=== PATIENT | male | born 1960 | race African-American/Black ===

== ENCOUNTER 2017-01-09 13:31 | Inpatient (IN) | payer OTHER ==
[2017-01-09 15:55] VITALS: BMI 24.2
--- NOTE | 2017-01-09 18:10 | HP ---
CIWA Score - CIWA Score Nausea/Vomitin-Mild Nausea/No Vomiting Muscle Tremors: 4-Moderate,w/Arms Extend Anxiety: 4-Mod. Anxious/Guarded Agitation: 4-Moderately Restless Paroxysmal Sweats: 1-Minimal Palms Moist Orientation: 0-Oriented Tacttile Disturbances: 0-None Auditory Disturbances: 0-None Visual Disturbances: 0-None Headache: 1-Very Mild CIWA-Ar Total Score: 15 Admission ROS BHS - HPI Chief Complaint: withdrawal sx Allergies/Adverse Reactions: Allergies Allergy/AdvReac Type Severity Reaction Status Date / Time metoprolol Allergy Severe Swelling Verified 01/09/17 17:16 History of Present Illness: 56 years old male with long history of alcohol cocaine dependence has diabetes ii hypercholesterol hips replacement 1965 and depression is admitted to detox Exam Limitations: No Limitations - Ebola screening Have you traveled outside of the country in the last 21 days: No Have you had contact with anyone from an Ebola affected area: No Have you been sick,other than usual withdrawal symptoms: No Do you have a fever: No - Review of Systems Constitutional: Changes in sleep, Weight Stable EENT: reports: No Symptoms Reported Respiratory: reports: No Symptoms reported Cardiac: reports: No Symptoms Reported GI: reports: Nausea, Poor Fluid Intake, Abdominal cramping : reports: No Symptoms Reported Musculoskeletal: reports: Back Pain Integumentary: reports: No Symptoms Reported Neuro: reports: Tremors Endocrine: reports: Unexplained Weight Gain Hematology: reports: No Symptoms Reported Psychiatric: reports: Judgement Intact, Orientated x3, Anxious, Depressed Other Systems: Reviewed and Negative Patient History - Patient Medical History Hx Anemia: No Hx Asthma: No Hx Chronic Obstructive Pulmonary Disease (COPD): No Hx Cancer: No Hx Cardiac Disorders: No Hx Congestive Heart Failure: No Hx Hypertension: Yes Hx Hypercholesterolemia: Yes (lipitor 20 MGS PO NIGHTLY) Hx Pacemaker: No HX Cerebrovascular Accident: No Hx Seizures: No Hx Dementia: No Hx Diabetes: Yes Hx Gastrointestinal Disorders: No Hx Liver Disease: No Hx Genitourinary Disorders: No Hx Sexually Transmitted Disorders: No Hx Renal Disease (ESRD): No Hx Thyroid Disease: No Hx Human Immunodeficiency Virus (HIV): No Hx Hepatitis C: No Hx Depression: Yes Hx Suicide Attempt: Yes (2003 overdose) Hx Bipolar Disorder: No Hx Schizophrenia: No - Patient Surgical History Past Surgical History: Yes Hx Neurologic Surgery: No Hx Cataract Extraction: No Hx Cardiac Surgery: No Hx Lung Surgery: No Hx Breast Surgery: No Hx Breast Biopsy: No Hx Abdominal Surgery: No Hx Appendectomy: No Hx Cholecystectomy: No Hx Genitourinary Surgery: No Hx Orthopedic Surgery: Yes (bilateral hip sx in 1967) Other Surgical History: right thigh in 12/19/2004 Anesthesia Reaction: No - PPD History Previous Implant?: Yes Documented Results: Negative w/proof Implanted On Prior [facility] Admission?: Yes Date: 12/14/15 Results: 0 mm PPD to be Administered?: Yes - Smoking Cessation Smoking history: Never smoked Have you smoked in the past 12 months: No Hx Chewing Tobacco Use: No Initiated information on smoking cessation: No - Substance & Tx. History Hx Alcohol Use: Yes Hx Substance Use: Yes Substance Use Type: Alcohol, Cocaine Hx Substance Use Treatment: Yes (12/11-12/16/15 [facility] - Substances Abused Alcohol Route: Oral Frequency: Daily Amount used: 10 [id number] Age of first use: 18 Date of Last Use: 01/09/17 Cocaine Route: Smoking Frequency: Daily Amount used: $100 Age of first use: 34 Date of Last Use: 01/07/17 Family Disease History - Family Disease History Family Disease History: Heart Disease: Mother, Other: Father (/alcohol) , Brother (ALCOHOL) Admission Physical Exam S - Vital Signs Vital Signs: Vital Signs - 24 hr 01/09/17 15:53 Temperature 97.5 F L Pulse Rate 106 H Respiratory 18 Rate Blood Pressure 134/78 - Physical General Appearance: Yes: Nourished, Appropriately Dressed, Mild Distress, Alcohol on Breath, Tremorous, Irritable, Sweating, Anxious HEENTM: Yes: Hearing grossly Normal, Normal ENT Inspection, Normocephalic, Normal Voice Respiratory: Yes: Chest Non-Tender, Lungs Clear, Normal Breath Sounds, No Respiratory Distress, No Accessory Muscle Use Neck: Yes: Supple, Trachea in good position Breast: Yes: Breasts Symetrical Cardiology: Yes: Regular Rhythm, S1, S2, Tachycardia Abdominal: Yes: Non Tender, Soft, Increased Bowel Sounds Genitourinary: Yes: Within Normal Limits Back: Yes: Normal Inspection Musculoskeletal: Yes: Gait Steady (walker), Back pain, Muscle Pain, Muscle weakness (hips) Extremities: Yes: Non-Tender, Tremors Neurological: Yes: Fully Oriented, Alert, Normal Response, Depressed Affect Integumentary: Yes: Warm Lymphatic: Yes: Within Normal Limits - Diagnostic (1) Alcohol dependence with withdrawal, uncomplicated Current Visit: Yes Status: Acute (2) Hyperlipidemia Current Visit: Yes Status: Chronic (3) DM Diabetes mellitus type 2 Current Visit: Yes Status: Chronic (4) S/P BILATERAL HIP REPLACEMENT Current Visit: Yes Status: Resolved Comment: STATES NEEDED BOTH HIPS REPLACEMENT ONCE AGAIN (5) Cocaine dependence, uncomplicated Current Visit: Yes Status: Chronic (6) Walker as ambulation aid Current Visit: Yes Status: Chronic Cleared for Admission [facility] - Detox or Rehab [facility] Level of Care: Medically Managed Detox Regimen/Protocol: Librium [facility] Breath Alcohol Content Breath Alcohol Content: 0.127 Urine Drug Screen - Results Drug Screen Negative: No Urine Drug Screen Results: TRICIA-Cocaine
[2017-01-09] MEDS ORDERED: diphenhydrAMINE HCL 50 MG CAPSULE PO PRN (18:17)
[2017-01-09] MEDS ORDERED: MAGNESIUM HYDROX 2400MG/30ML ORAL SUSPENSION 30 ML CUP PO PRN (18:17)
[2017-01-09] MEDS ORDERED: chlordiazePOXIDE HCL 25 MG CAPSULE PO PRN (18:17)
[2017-01-09] MEDS ORDERED: ACETAMINOPHEN 325 MG TABLET (FP) PO PRN (18:17)
[2017-01-09] MEDS ORDERED: MENTHOL/PHENOL 1 EACH UD MM PRN (18:17)
[2017-01-09] MEDS ORDERED: P-EPHED 60MG/TRIPROLIDI 2.5MG TABLET PO PRN (18:17)
[2017-01-09] MEDS ORDERED: hydrOXYzine PAMOATE 50 MG CAPSULE (FP) PO PRN (18:17)
[2017-01-09] MEDS ORDERED: MAG HYDROX/AL HYDROX/SIMETH 30 ML UNIT-DOSE CUP PO PRN (18:17)
[2017-01-09] MEDS ORDERED: guaiFENesin/D-METHORPHAN HB 10 ML UNIT-DOSE CUPS PO PRN (18:17)
[2017-01-09] MEDS ORDERED: LOPERAMIDE HCL 2 MG CAPSULE PO PRN (18:17)
[2017-01-09] MEDS ORDERED: MAGNESIUM CITRATE 300 ML BOTTLE PO PRN (18:17)
[2017-01-09] MEDS ORDERED: cloNIDine HCL 0.1 MG TABLET PO PRN (18:20)
[2017-01-09] MEDS ORDERED: INSULIN (NOVOLOG) ASPART 100 UNITS/ML 10ML VIAL ONE (21:39)
[2017-01-09] MEDS: ATORVASTATIN CA 20 MG TABLET (FP) PO SCH (22:42)
[2017-01-09] MEDS: THIAMINE HCL 100 MG TABLET (FP) PO SCH (22:42)
[2017-01-09] MEDS: INSULIN SLIDING SCALE (NOVOLOG) 1 VIAL SQ SCH (22:43)
[2017-01-09] MEDS: chlordiazePOXIDE HCL 25 MG CAPSULE PO SCH (22:43)
[2017-01-10 00:03] LABS: URINE APPEARANCE CLEAR; URINE BILIRUBIN NEGATIVE (NEGATIVE); URINE BLOOD NEGATIVE (NEGATIVE); URINE COLOR YELLOW; URINE GLUCOSE (UA) NEGATIVE (NEGATIVE); URINE KETONE TRACE (NEGATIVE); URINE NITRITE NEGATIVE (NEGATIVE); URINE PROTEIN NEGATIVE (NEGATIVE); URINE UROBILINOGEN NEGATIVE mg/dL (0.2-1.0)
[2017-01-10] MEDS: chlordiazePOXIDE HCL 25 MG CAPSULE PO SCH ×4 (05:47→23:05)
[2017-01-10] MEDS ORDERED: INSULIN (NOVOLOG) ASPART 100 UNITS/ML 10ML VIAL ONE ×3 (05:52→23:12)
[2017-01-10] MEDS: INSULIN SLIDING SCALE (NOVOLOG) 1 VIAL SQ SCH ×4 (08:08→23:06)
[2017-01-10] MEDS: metFORMIN HCL 500 MG TABLET (FP) PO SCH ×2 (08:08→17:38)
[2017-01-10] MEDS: PRENATAL VITAMINS W/ FOLIC ACID TABLET (FP) PO SCH (10:07)
[2017-01-10 10:33] LABS: MCH 29.8 pg (25.7-33.7); MEAN CELL VOLUME 90.1 fl (80-96); MEAN PLT VOLUME 7.7 fl (7.5-11.1); PLATELET COUNT 257 K/MM3 (134-434); WHITE BLOOD COUNT 6.1 K/mm3 (4.0-10.0)
[2017-01-10 10:54] LABS: ALBUMIN 3.1 g/dl (3.4-5.0); ALK PHOS 70 U/L (45-117); ANION GAP 11 (8-16); BILIRUBIN,TOTAL 0.8 mg/dL (0.2-1.0); CALCIUM 9.1 mg/dL (8.5-10.1); CO2 26 mmol/L (21-32); CREATININE 0.7 mg/dL (0.7-1.3); GLUCOSE,RANDOM 111 mg/dL (74-106); SGOT/AST 32 U/L (15-37); SGPT/ALT 24 U/L (12-78); TOT PROT 6.8 g/dl (6.4-8.2)
[2017-01-10 12:09] LABS: URINE LEUK ESTERASE Negative (NEGATIVE)
--- NOTE | 2017-01-10 14:23 | CONSULT ---
[facility] Psychiatric Consult - Data Date of interview: 01/10/17 Admission source: [facility] Identifying data: [place] [facility] [place] 56 y[place] AA male seeking detox treatment on for alcohol and cocaine (crack) dependence.Patient is a without children,homeless (resides in longterm),unemployed,disabled and supported on SSI benefits. Substance Abuse History: Confirmed by patient in this encounter. Smoking Cessation. Smoking history: Never smoked. Have you smoked in the past 12 months: No. Hx Chewing Tobacco Use: No. Initiated information on smoking cessation: No. - Substance & Tx. History. Hx Alcohol Use: Yes. Hx Substance Use: Yes. Substance Use Type: Alcohol, Cocaine. Hx Substance Use Treatment: Yes (12/11-12/16/15 [facility]). - Substances Abused. Alcohol. Route: Oral. Frequency: Daily. Amount used: 10 [id number]. Age of first use: 18. Date of Last Use: 01/09/17. Cocaine. Route: Smoking. Frequency: Daily. Amount used: $100. Age of first use: 34. Date of Last Use: 01/07/17 Medical History: Medical co-morbidities : hypertension,hypercholesterolemia,gout ,diabetes mellitus and a past history of bilateral hip replacement (1966). Psychiatric History: Past psychiatric hospitalizations at [facility] and [facility] in [facility].Diagnosed with MDD.No recent history of OPD care.Mr Rodríguez reports that he uses various local emergency departments to obtain medications refills.Prescribed seroquel 50 mg/hs + wellbutrin (dose not recalled).Self- report of a suicide attempt in 2006 at the of (overdose with alcohol/ drugs/medications). Physical/Sexual Abuse/Trauma History: No reported history of abuse. Additional Comment: Urine Drug Screen Results: TRICIA-Cocaine.Noted. Mental Status Exam - Mental Status Exam Alert and Oriented to: Time, Place, Person Cognitive Function: Grossly Intact Patient Appearance: Well Groomed Mood: Nervous, Withdrawn, Anxious Affect: Mood Congruent Patient Behavior: Fatigued, Cooperative Speech Pattern: Clear Voice Loudness: Normal Thought Process: Goal Oriented Thought Disorder: Not Present Hallucinations: Denies Suicidal Ideation: Denies Homicidal Ideation: Denies Insight/Judgement: Poor Sleep: Poorly, Difficulty falling asleep Appetite: Fair Gait/Station: Other (moves around with a walker) Psychiatric Findings - Problem List ([place] 1, 2,3) (1) Alcohol dependence with withdrawal, uncomplicated Status: Acute (2) Cocaine dependence, uncomplicated Status: Acute (3) MDD (major depressive disorder) Status: Chronic Qualifiers: Major depression recurrence: recurrent Active/Remission status: remission status unspecified Qualified Code(s): F33.9 - Major depressive disorder, recurrent, unspecified; F33.9 - Major depressive disorder, recurrent, unspecified; F33.9 - Major depressive disorder, recurrent, unspecified; F33.9 - Major depressive disorder, recurrent, unspecified (4) DM Diabetes mellitus type 2 Status: Chronic (5) Hyperlipidemia Status: Chronic (6) Walker as ambulation aid Status: Chronic (7) S/P BILATERAL HIP REPLACEMENT Status: Resolved Comment: STATES NEEDED BOTH HIPS REPLACEMENT ONCE AGAIN (8) History of gout Status: Chronic (9) HYPERLIPIDEMIA Status: Chronic (10) Insomnia Status: Acute Qualifiers: Insomnia type: unspecified Qualified Code(s): G47.00 - Insomnia, unspecified; G47.00 - Insomnia, unspecified - Initial Treatment Plan Initial Treatment Plan: Psychoeducation.Detoxification.Medications : seroquel 50 mg po hs + wellbutrin 100 mg po daily.Side effects/benefits of both drugs are discussed with the patient.He agrees with this plan of care.Observation.
--- NOTE | 2017-01-10 19:51 | EKG ---
Test Reason : Blood Pressure : / mmHG Vent. Rate : 095 BPM Atrial Rate : 095 BPM P-R Int : 148 ms QRS Dur : 082 ms QT Int : 350 ms P-R-T Axes : 058 020 019 degrees QTc Int : 439 ms NORMAL SINUS RHYTHM NORMAL ECG NO PREVIOUS ECGS AVAILABLE CLINICAL CORRELATION IS RECOMMENDED Confirmed by YEE SAENZ MD ([id number]) on 01/10/2017 7:51:29 PM Referred By: Confirmed By:YEE SAENZ MD
--- NOTE | 2017-01-10 20:35 | PN ---
[facility] CIWA - CIWA Score Nausea/Vomitin-No Nausea/No Vomiting Muscle Tremors: 2 Anxiety: 3 Agitation: 2 Paroxysmal Sweats: 3 Orientation: 0-Oriented Tacttile Disturbances: 2-Mild Itch/Numbness/Burn Auditory Disturbances: 0-None Visual Disturbances: 1-Very Mild Sensitivity Headache: 3-Moderate CIWA-Ar Total Score: 16 S Progress Note (SOAP) Subjective: Sweating, Diarrhea, Stomach cramping, H/A, Body Aches. Objective: PT. A & O X 3, OBSERVED AMBULATING ON UNIT WITH ASSISTANCE OF A WALKER. NO ACUTE DISTRESS. 01/10/17 20:32 Vital Signs Temperature 98.7 F 01/10/17 18:24 Pulse Rate 88 01/10/17 18:24 Respiratory Rate 19 01/10/17 18:24 Blood Pressure 140/85 01/10/17 18:24 O2 Sat by Pulse Oximetry (%) Laboratory Tests 01/09/17 01/09/17 01/10/17 21:13 23:20 05:49 WBC RBC Hgb Hct MCV MCH MCHC RDW Plt Count MPV Sodium Potassium Chloride Carbon Dioxide Anion Gap BUN Creatinine Creat Clearance w eGFR POC Glucometer 212 231 Random Glucose Calcium Total Bilirubin AST ALT Alkaline Phosphatase Total Protein Albumin Urine Color Yellow Urine Appearance Clear Urine pH 6.0 Ur Specific [place] 1.020 Urine Protein Negative Urine Glucose (UA) Negative Urine Ketones Trace H Urine Blood Negative Urine Nitrite Negative Urine Bilirubin Negative Urine Urobilinogen Negative Ur Leukocyte Esterase Negative RPR Titer 01/10/17 01/10/17 01/10/17 08:00 08:00 08:00 WBC 6.1 RBC 4.59 Hgb 13.7 Hct 41.4 MCV 90.1 MCH 29.8 MCHC 33.0 RDW 14.0 Plt Count 257 MPV 7.7 Sodium 140 Potassium 3.7 Chloride 103 Carbon Dioxide 26 Anion Gap 11 BUN 7 Creatinine 0.7 Creat Clearance w eGFR > 60 POC Glucometer Random Glucose 111 H D Calcium 9.1 Total Bilirubin 0.8 D AST 32 ALT 24 Alkaline Phosphatase 70 Total Protein 6.8 Albumin 3.1 L Urine Color Urine Appearance Urine pH Ur Specific [place] Urine Protein Urine Glucose (UA) Urine Ketones Urine Blood Urine Nitrite Urine Bilirubin Urine Urobilinogen Ur Leukocyte Esterase RPR Titer Nonreactive 01/10/17 01/10/17 10:51 16:34 WBC RBC Hgb Hct MCV MCH MCHC RDW Plt Count MPV Sodium Potassium Chloride Carbon Dioxide Anion Gap BUN Creatinine Creat Clearance w eGFR POC Glucometer 312 204 Random Glucose Calcium Total Bilirubin AST ALT Alkaline Phosphatase Total Protein Albumin Urine Color Urine Appearance Urine pH Ur Specific [place] Urine Protein Urine Glucose (UA) Urine Ketones Urine Blood Urine Nitrite Urine Bilirubin Urine Urobilinogen Ur Leukocyte Esterase RPR Titer LABS NOTED. HCV AB RESULTS PENDING. 01/10/17 20:34 Assessment: 01/10/17 20:33 WITHDRAWAL SYMPTOMS. Plan: CONTINUE DETOX.
[2017-01-10] MEDS: QUEtiapine FUMARATE 50 MG TABLET PO SCH (23:05)
[2017-01-10] MEDS: ATORVASTATIN CA 20 MG TABLET (FP) PO SCH (23:05)
[2017-01-10] MEDS: THIAMINE HCL 100 MG TABLET (FP) PO SCH (23:10)
[2017-01-11] MEDS: chlordiazePOXIDE HCL 25 MG CAPSULE PO SCH ×3 (06:06→17:32)
[2017-01-11] MEDS: metFORMIN HCL 500 MG TABLET (FP) PO SCH ×2 (06:16→17:32)
[2017-01-11] MEDS ORDERED: INSULIN (NOVOLOG) ASPART 100 UNITS/ML 10ML VIAL ONE ×2 (06:39→11:05)
[2017-01-11] MEDS: INSULIN SLIDING SCALE (NOVOLOG) 1 VIAL SQ SCH ×4 (07:47→22:49)
[2017-01-11] MEDS: buPROPion HCL 100 MG TABLET PO SCH (10:25)
[2017-01-11] MEDS: PRENATAL VITAMINS W/ FOLIC ACID TABLET (FP) PO SCH (10:25)
--- NOTE | 2017-01-11 14:43 | PN ---
[facility] CIWA - CIWA Score Nausea/Vomitin-No Nausea/No Vomiting Muscle Tremors: 4-Moderate,w/Arms Extend Anxiety: 3 Agitation: 3 Paroxysmal Sweats: 3 Orientation: 0-Oriented Tacttile Disturbances: 0-None Auditory Disturbances: 0-None Visual Disturbances: 0-None Headache: 0-None Present CIWA-Ar Total Score: 13 S Progress Note (SOAP) Subjective: Anxiety,tremors,sweating,interrupted sleep,restless Objective: 01/11/17 14:42 Vital Signs - 8 hr 01/11/17 01/11/17 10:11 14:05 Temperature 97.1 F L 97.2 F L Pulse Rate 79 93 H Respiratory 18 20 Rate Blood Pressure 126/90 120/73 Laboratory Last Values WBC 6.1 K/mm3 (4.0-10.0) 01/10/17 08:00 RBC 4.59 M/mm3 (4.00-5.60) 01/10/17 08:00 Hgb 13.7 GM/dL (11.7-16.9) 01/10/17 08:00 Hct 41.4 % (35.4-49) 01/10/17 08:00 MCV 90.1 fl (80-96) 01/10/17 08:00 MCH 29.8 pg (25.7-33.7) 01/10/17 08:00 MCHC 33.0 g/dl (32.0-35.9) 01/10/17 08:00 RDW 14.0 % (11.9-15.9) 01/10/17 08:00 Plt Count 257 K/MM3 (134-434) 01/10/17 08:00 MPV 7.7 fl (7.5-11.1) 01/10/17 08:00 Sodium 140 mmol/L (136-145) 01/10/17 08:00 Potassium 3.7 mmol/L (3.5-5.1) 01/10/17 08:00 Chloride 103 mmol/L (98-107) 01/10/17 08:00 Carbon Dioxide 26 mmol/L (21-32) 01/10/17 08:00 Anion Gap 11 (8-16) 01/10/17 08:00 BUN 7 mg/dL (7-18) 01/10/17 08:00 Creatinine 0.7 mg/dL (0.7-1.3) 01/10/17 08:00 Creat Clearance w eGFR > 60 (>60) 01/10/17 08:00 POC Glucometer 281 UNITS (()) 01/11/17 10:57 Random Glucose 111 mg/dL (74-106) H D 01/10/17 08:00 Calcium 9.1 mg/dL (8.5-10.1) 01/10/17 08:00 Total Bilirubin 0.8 mg/dL (0.2-1.0) D 01/10/17 08:00 AST 32 U/L (15-37) 01/10/17 08:00 ALT 24 U/L (12-78) 01/10/17 08:00 Alkaline Phosphatase 70 U/L (45-117) 01/10/17 08:00 Total Protein 6.8 g/dl (6.4-8.2) 01/10/17 08:00 Albumin 3.1 g/dl (3.4-5.0) L 01/10/17 08:00 Urine Color Yellow 01/09/17 23:20 Urine Appearance Clear 01/09/17 23:20 Urine pH 6.0 (5.0-8.0) 01/09/17 23:20 Ur Specific [place] 1.020 (1.005-1.025) 01/09/17 23:20 Urine Protein Negative (NEGATIVE) 01/09/17 23:20 Urine Glucose (UA) Negative (NEGATIVE) 01/09/17 23:20 Urine Ketones Trace (NEGATIVE) H 01/09/17 23:20 Urine Blood Negative (NEGATIVE) 01/09/17 23:20 Urine Nitrite Negative (NEGATIVE) 01/09/17 23:20 Urine Bilirubin Negative (NEGATIVE) 01/09/17 23:20 Urine Urobilinogen Negative mg/dL (0.2-1.0) 01/09/17 23:20 Ur Leukocyte Esterase Negative (NEGATIVE) 01/09/17 23:20 RPR Titer Nonreactive (NONREACTIVE) 01/10/17 08:00 Hepatitis C Antibody 1.5 s/co ratio (0.0-0.9) H 01/10/17 08:00 labs noted Assessment: 01/11/17 14:42 Withdrawal sx. Plan: Continue detox
[2017-01-11] MEDS: ATORVASTATIN CA 20 MG TABLET (FP) PO SCH (22:45)
[2017-01-11] MEDS: THIAMINE HCL 100 MG TABLET (FP) PO SCH (22:45)
[2017-01-11] MEDS: QUEtiapine FUMARATE 50 MG TABLET PO SCH (22:46)
[2017-01-11] MEDS: chlordiazePOXIDE 5 MG CAPSULE PO SCH (22:46)
[2017-01-12] MEDS: metFORMIN HCL 500 MG TABLET (FP) PO SCH ×2 (07:25→16:47)
[2017-01-12] MEDS: chlordiazePOXIDE 5 MG CAPSULE PO SCH ×3 (07:26→17:47)
[2017-01-12] MEDS: INSULIN SLIDING SCALE (NOVOLOG) 1 VIAL SQ SCH ×4 (07:44→22:30)
[2017-01-12] MEDS: PRENATAL VITAMINS W/ FOLIC ACID TABLET (FP) PO SCH (11:08)
[2017-01-12] MEDS ORDERED: INSULIN (NOVOLOG) ASPART 100 UNITS/ML 10ML VIAL ONE ×3 (11:30→21:07)
[2017-01-12] MEDS: buPROPion HCL 100 MG TABLET PO SCH (12:05)
--- NOTE | 2017-01-12 12:58 | PN ---
BHS Progress Note (SOAP) Subjective: SLIGHT ANXIETY,SWEATS, FATIGUE. Objective: 01/12/17 12:57 Vital Signs Temperature 97.7 F 01/12/17 11:00 Pulse Rate 82 01/12/17 11:00 Respiratory Rate 18 01/12/17 11:00 Blood Pressure 129/60 01/12/17 11:00 O2 Sat by Pulse Oximetry (%) Laboratory Last Values WBC 6.1 K/mm3 (4.0-10.0) 01/10/17 08:00 RBC 4.59 M/mm3 (4.00-5.60) 01/10/17 08:00 Hgb 13.7 GM/dL (11.7-16.9) 01/10/17 08:00 Hct 41.4 % (35.4-49) 01/10/17 08:00 MCV 90.1 fl (80-96) 01/10/17 08:00 MCH 29.8 pg (25.7-33.7) 01/10/17 08:00 MCHC 33.0 g/dl (32.0-35.9) 01/10/17 08:00 RDW 14.0 % (11.9-15.9) 01/10/17 08:00 Plt Count 257 K/MM3 (134-434) 01/10/17 08:00 MPV 7.7 fl (7.5-11.1) 01/10/17 08:00 Sodium 140 mmol/L (136-145) 01/10/17 08:00 Potassium 3.7 mmol/L (3.5-5.1) 01/10/17 08:00 Chloride 103 mmol/L (98-107) 01/10/17 08:00 Carbon Dioxide 26 mmol/L (21-32) 01/10/17 08:00 Anion Gap 11 (8-16) 01/10/17 08:00 BUN 7 mg/dL (7-18) 01/10/17 08:00 Creatinine 0.7 mg/dL (0.7-1.3) 01/10/17 08:00 Creat Clearance w eGFR > 60 (>60) 01/10/17 08:00 POC Glucometer 257 UNITS (()) 01/12/17 11:27 Random Glucose 111 mg/dL (74-106) H D 01/10/17 08:00 Calcium 9.1 mg/dL (8.5-10.1) 01/10/17 08:00 Total Bilirubin 0.8 mg/dL (0.2-1.0) D 01/10/17 08:00 AST 32 U/L (15-37) 01/10/17 08:00 ALT 24 U/L (12-78) 01/10/17 08:00 Alkaline Phosphatase 70 U/L (45-117) 01/10/17 08:00 Total Protein 6.8 g/dl (6.4-8.2) 01/10/17 08:00 Albumin 3.1 g/dl (3.4-5.0) L 01/10/17 08:00 Urine Color Yellow 01/09/17 23:20 Urine Appearance Clear 01/09/17 23:20 Urine pH 6.0 (5.0-8.0) 01/09/17 23:20 Ur Specific [place] 1.020 (1.005-1.025) 01/09/17 23:20 Urine Protein Negative (NEGATIVE) 01/09/17 23:20 Urine Glucose (UA) Negative (NEGATIVE) 01/09/17 23:20 Urine Ketones Trace (NEGATIVE) H 01/09/17 23:20 Urine Blood Negative (NEGATIVE) 01/09/17 23:20 Urine Nitrite Negative (NEGATIVE) 01/09/17 23:20 Urine Bilirubin Negative (NEGATIVE) 01/09/17 23:20 Urine Urobilinogen Negative mg/dL (0.2-1.0) 01/09/17 23:20 Ur Leukocyte Esterase Negative (NEGATIVE) 01/09/17 23:20 RPR Titer Nonreactive (NONREACTIVE) 01/10/17 08:00 Hepatitis C Antibody 1.5 s/co ratio (0.0-0.9) H 01/10/17 08:00 Assessment: 01/12/17 12:57 WITHDRAWAL SX Plan: CONTINUE DETOX
[2017-01-12] MEDS: chlordiazePOXIDE HCL 10 MG CAPSULE PO SCH (22:30)
[2017-01-12] MEDS: ATORVASTATIN CA 20 MG TABLET (FP) PO SCH (22:30)
[2017-01-12] MEDS: QUEtiapine FUMARATE 50 MG TABLET PO SCH (22:30)
[2017-01-12] MEDS: THIAMINE HCL 100 MG TABLET (FP) PO SCH (22:30)
[2017-01-13] MEDS: IBUPROFEN 400 MG TABLET (FP) PO PRN ×2 (02:54→10:45)
[2017-01-13] MEDS: chlordiazePOXIDE HCL 10 MG CAPSULE PO SCH ×2 (06:07→10:46)
[2017-01-13] MEDS: metFORMIN HCL 500 MG TABLET (FP) PO SCH (06:07)
[2017-01-13] MEDS ORDERED: INSULIN (NOVOLOG) ASPART 100 UNITS/ML 10ML VIAL ONE ×2 (06:45→11:18)
[2017-01-13] MEDS: INSULIN SLIDING SCALE (NOVOLOG) 1 VIAL SQ SCH ×2 (07:05→11:16)
[2017-01-13] MEDS: buPROPion HCL 100 MG TABLET PO SCH (10:44)
[2017-01-13] MEDS: PRENATAL VITAMINS W/ FOLIC ACID TABLET (FP) PO SCH (10:45)
--- NOTE | 2017-01-13 11:56 | DS ---
[facility] Detox Discharge Summary Admission Date: 01/09/17 Discharge Date: 01/13/17 - History Present History: Alcohol Dependence, Cocaine Dependence Additional Comments: PATIENT GOING TO [facility] FOR AFTERCARE. PATIENT WAS DISCHARGED FROM DETOX UNIT TO BE TAKEN TO REHAB UNIT IN STABLE MEDICAL CONDITION. Pertinent Past History: Gout, Depression, HTN, Type II DM, Hyperlipidemia, S/P Bilateral Hip Replacement , Use of Walker as ambulatory Aid, Insomnia. - Physical Exam Results Vital Signs: Vital Signs Temperature 96.7 F L 01/13/17 10:19 Pulse Rate 92 H 01/13/17 10:19 Respiratory Rate 18 01/13/17 10:19 Blood Pressure 135/78 01/13/17 10:19 O2 Sat by Pulse Oximetry (%) Pertinent Admission Physical Exam Findings: WITHDRAWAL SYMPTOMS. Laboratory Tests 01/09/17 01/09/17 01/09/17 17:28 21:13 23:20 WBC RBC Hgb Hct MCV MCH MCHC RDW Plt Count MPV Sodium Potassium Chloride Carbon Dioxide Anion Gap BUN Creatinine Creat Clearance w eGFR POC Glucometer 172 212 Random Glucose Calcium Total Bilirubin AST ALT Alkaline Phosphatase Total Protein Albumin Urine Color Yellow Urine Appearance Clear Urine pH 6.0 Ur Specific [place] 1.020 Urine Protein Negative Urine Glucose (UA) Negative Urine Ketones Trace H Urine Blood Negative Urine Nitrite Negative Urine Bilirubin Negative Urine Urobilinogen Negative Ur Leukocyte Esterase Negative RPR Titer Hepatitis C Antibody 01/10/17 01/10/17 01/10/17 05:49 08:00 08:00 WBC 6.1 RBC 4.59 Hgb 13.7 Hct 41.4 MCV 90.1 MCH 29.8 MCHC 33.0 RDW 14.0 Plt Count 257 MPV 7.7 Sodium Potassium Chloride Carbon Dioxide Anion Gap BUN Creatinine Creat Clearance w eGFR POC Glucometer 231 Random Glucose Calcium Total Bilirubin AST ALT Alkaline Phosphatase Total Protein Albumin Urine Color Urine Appearance Urine pH Ur Specific [place] Urine Protein Urine Glucose (UA) Urine Ketones Urine Blood Urine Nitrite Urine Bilirubin Urine Urobilinogen Ur Leukocyte Esterase RPR Titer Hepatitis C Antibody 1.5 H 01/10/17 01/10/17 01/10/17 08:00 08:00 10:51 WBC RBC Hgb Hct MCV MCH MCHC RDW Plt Count MPV Sodium 140 Potassium 3.7 Chloride 103 Carbon Dioxide 26 Anion Gap 11 BUN 7 Creatinine 0.7 Creat Clearance w eGFR > 60 POC Glucometer 312 Random Glucose 111 H D Calcium 9.1 Total Bilirubin 0.8 D AST 32 ALT 24 Alkaline Phosphatase 70 Total Protein 6.8 Albumin 3.1 L Urine Color Urine Appearance Urine pH Ur Specific [place] Urine Protein Urine Glucose (UA) Urine Ketones Urine Blood Urine Nitrite Urine Bilirubin Urine Urobilinogen Ur Leukocyte Esterase RPR Titer Nonreactive Hepatitis C Antibody 01/10/17 01/10/17 01/11/17 16:34 23:04 06:15 WBC RBC Hgb Hct MCV MCH MCHC RDW Plt Count MPV Sodium Potassium Chloride Carbon Dioxide Anion Gap BUN Creatinine Creat Clearance w eGFR POC Glucometer 204 264 246 Random Glucose Calcium Total Bilirubin AST ALT Alkaline Phosphatase Total Protein Albumin Urine Color Urine Appearance Urine pH Ur Specific [place] Urine Protein Urine Glucose (UA) Urine Ketones Urine Blood Urine Nitrite Urine Bilirubin Urine Urobilinogen Ur Leukocyte Esterase RPR Titer Hepatitis C Antibody 01/11/17 01/11/17 01/11/17 10:57 16:42 20:35 WBC RBC Hgb Hct MCV MCH MCHC RDW Plt Count MPV Sodium Potassium Chloride Carbon Dioxide Anion Gap BUN Creatinine Creat Clearance w eGFR POC Glucometer 281 241 256 Random Glucose Calcium Total Bilirubin AST ALT Alkaline Phosphatase Total Protein Albumin Urine Color Urine Appearance Urine pH Ur Specific [place] Urine Protein Urine Glucose (UA) Urine Ketones Urine Blood Urine Nitrite Urine Bilirubin Urine Urobilinogen Ur Leukocyte Esterase RPR Titer Hepatitis C Antibody 01/12/17 01/12/17 01/12/17 07:39 11:27 16:26 WBC RBC Hgb Hct MCV MCH MCHC RDW Plt Count MPV Sodium Potassium Chloride Carbon Dioxide Anion Gap BUN Creatinine Creat Clearance w eGFR POC Glucometer 298 257 280 Random Glucose Calcium Total Bilirubin AST ALT Alkaline Phosphatase Total Protein Albumin Urine Color Urine Appearance Urine pH Ur Specific [place] Urine Protein Urine Glucose (UA) Urine Ketones Urine Blood Urine Nitrite Urine Bilirubin Urine Urobilinogen Ur Leukocyte Esterase RPR Titer Hepatitis C Antibody 01/12/17 01/13/17 01/13/17 20:51 06:08 11:16 WBC RBC Hgb Hct MCV MCH MCHC RDW Plt Count MPV Sodium Potassium Chloride Carbon Dioxide Anion Gap BUN Creatinine Creat Clearance w eGFR POC Glucometer 234 348 304 Random Glucose Calcium Total Bilirubin AST ALT Alkaline Phosphatase Total Protein Albumin Urine Color Urine Appearance Urine pH Ur Specific [place] Urine Protein Urine Glucose (UA) Urine Ketones Urine Blood Urine Nitrite Urine Bilirubin Urine Urobilinogen Ur Leukocyte Esterase RPR Titer Hepatitis C Antibody LABS NOTED. - Treatment Hospital Course: Detox Protocol Followed, Detoxed Safely, Responded well, Discharged Condition Good, Rehab Referral Accepted Patient has Accepted a Rehab Referral to: [facility]. - Medication Discharge Medications: Ambulatory Orders Atorvastatin Ca [Lipitor] 20 mg PO HS 04/13/13 Metformin HCl [Glucophage -] 500 mg PO BID 04/13/13 Bupropion HCl [Wellbutrin -] 100 mg PO DAILY #30 tablet 12/13/15 Quetiapine Fumarate [Seroquel] 100 tab PO HS #30 tablet 12/13/15 Ibuprofen [Motrin -] 600 mg PO QID PRN 01/09/17 Bupropion HCl [Wellbutrin -] 100 mg PO DAILY #30 tablet 01/10/17 Quetiapine Fumarate [Seroquel -] 50 mg PO HS #30 tablet 01/10/17 - Diagnosis (1) Alcohol dependence with withdrawal, uncomplicated Current Visit: Yes Status: Acute (2) Cocaine dependence, uncomplicated Current Visit: Yes Status: Acute (3) Insomnia Current Visit: Yes Status: Acute Qualifiers: Insomnia type: unspecified Qualified Code(s): G47.00 - Insomnia, unspecified; G47.00 - Insomnia, unspecified (4) DM Diabetes mellitus type 2 Current Visit: Yes Status: Chronic (5) HYPERLIPIDEMIA Current Visit: Yes Status: Chronic (6) History of gout Current Visit: Yes Status: Chronic (7) Hyperlipidemia Current Visit: Yes Status: Chronic (8) MDD (major depressive disorder) Current Visit: Yes Status: Chronic Qualifiers: Major depression recurrence: recurrent Active/Remission status: remission status unspecified Qualified Code(s): F33.9 - Major depressive disorder, recurrent, unspecified; F33.9 - Major depressive disorder, recurrent, unspecified; F33.9 - Major depressive disorder, recurrent, unspecified; F33.9 - Major depressive disorder, recurrent, unspecified (9) Walker as ambulation aid Current Visit: Yes Status: Chronic (10) S/P BILATERAL HIP REPLACEMENT Current Visit: Yes Status: Resolved (11) Major depressive disorder Current Visit: No Status: Chronic - AMA Did Patient Leave Against Medical Advice: No
[2017-01-13] MEDS ORDERED: buPROPion HCL 100 MG TABLET PO ONE (13:18)
[2017-01-13 13:32] VITALS: BP 132/68; PULSE 93; TEMP 98
--- NOTE | 2017-01-13 13:35 | HP ---
Psychiatrist Admission - Data Date of interview: 01/13/17 Admission source: 3N Identifying data: This is the second [facility] inpatient rehabilitation admission for thsi 56 year old AA male, without children, unemployed and on SSI, [place] Medical History: HTN, Hypercholesterolemia, Gout, DM, bilateral hips replacement. Psychiatric History: Patient reports was diagnosed with MDD, first psychiatric contact in 2002 following the of his from complications of diabetes, reports he tried to commit a suicide by overdose with drugs and alcohol, states family called 911 and he was brought to [facility], states was overnight there and sent to I detox. second hospitalization at [facility] in 2010 for 2 days(was intoxicated), another psychiatric hospitlaization at [facility] . Reports has been on and off Wellbutrin since 2002, states he sees the psychiatrist at various Er'S/detox/rehab. programs to continue medications.Seen by and continued Wellbutrin 100 mg po daily and Seroquel 50 mg po hs. Physical/Sexual Abuse/Trauma History: Denies history of sexual, phsyical and verbal abuse. Additional Comment: HS grad, in special classes for learning disorder. Vital Signs: Vital Signs - 24 hr 01/12/17 01/12/17 01/12/17 13:47 17:49 22:28 Temperature 98.4 F 98.1 F 98.6 F Pulse Rate 93 H 92 H 93 H Respiratory 20 18 18 Rate Blood Pressure 126/73 109/64 152/87 01/13/17 01/13/17 01/13/17 00:30 03:30 06:36 Temperature 97 F L Pulse Rate 97 H Respiratory 18 18 16 Rate Blood Pressure 151/80 01/13/17 10:19 Temperature 96.7 F L Pulse Rate 92 H Respiratory 18 Rate Blood Pressure 135/78 Allergies/Adverse Reactions: Allergies Allergy/AdvReac Type Severity Reaction Status Date / Time metoprolol Allergy Severe Swelling Verified 01/09/17 17:16 Date of last physical exam: 01/09/17 Concur with the findings of this exam: Yes - Substance Abuse/Tx History Hx Alcohol Use: Yes Hx Substance Use: Yes Substance Use Type: Alcohol (drinkis 10 x 40 oz cans of beer daily.), Cocaine ( smoks cocaine daily for $100) Hx Substance Use Treatment: Yes (04/19 and 12/20 at [facility]) Mental Status Exam - Mental Status Exam Alert and Oriented to: Time, Place, Person Cognitive Function: Grossly Intact Patient Appearance: Unkempt, Disheveled Mood: Sad, Anxious Affect: Mood Congruent Patient Behavior: Appropriate, Cooperative Speech Pattern: Clear, Appropriate Voice Loudness: Normal Thought Process: Intact, Goal Oriented Thought Disorder: Not Present Hallucinations: Denies Suicidal Ideation: Denies Homicidal Ideation: Denies Insight/Judgement: Fair Sleep: Fair Appetite: Fair Muscle strength/Tone: Normal Gait/Station: Other (ambulates with walker) Psychiatric Findings - Problem List ([place] 1, 2,3) (1) MDD (major depressive disorder) Current Visit: Yes Status: Chronic Qualifiers: Major depression recurrence: recurrent Active/Remission status: remission status unspecified Qualified Code(s): F33.9 - Major depressive disorder, recurrent, unspecified; F33.9 - Major depressive disorder, recurrent, unspecified; F33.9 - Major depressive disorder, recurrent, unspecified; F33.9 - Major depressive disorder, recurrent, unspecified (2) Alcohol dependence Current Visit: No Status: Active (3) Cocaine dependence Current Visit: No Status: Acute (4) DM Diabetes mellitus type 2 Current Visit: Yes Status: Chronic (5) History of gout Current Visit: Yes Status: Chronic (6) Hyperlipidemia Current Visit: Yes Status: Chronic (7) S/P BILATERAL HIP REPLACEMENT Current Visit: Yes Status: Resolved Comment: STATES NEEDED BOTH HIPS REPLACEMENT ONCE AGAIN - Initial Treatment Plan Initial Treatment Plan: Will continue his current medications, monitor progress as needed.
== END 2017-01-13 11:58 | disposition other institution (70) | DRG 774 ==
LOC: YASAS 13:31 → Y3N 18:06 → Y5N 01-13 11:58 → Y3N 01-13 11:58
PROVIDERS: ADMIT Internal Medicine; ATTEND Psychiatry & Neurology Psychiatry
PROC: HZ2ZZZZ Detoxification Services for Substance Abuse Treatment (ICD-10-PCS; principal; 2017-01-09)
DX: F10.230 Alcohol dependence with withdrawal, uncomplicated (principal); F14.20 Cocaine dependence, uncomplicated; F33.9 Major depressive disorder, recurrent, unspecified; E11.9 Type 2 diabetes mellitus without complications; M10.9 Gout, unspecified; E78.5 Hyperlipidemia, unspecified; R00.0 Tachycardia, unspecified; G47.00 Insomnia, unspecified; R26.2 Difficulty in walking, not elsewhere classified; Z99.89 Dependence on other enabling machines and devices; Z96.643 Presence of artificial hip joint, bilateral; Z88.8 Allergy status to other drugs, medicaments and biological substances; Z79.4 Long term (current) use of insulin; Z79.84 Long term (current) use of oral hypoglycemic drugs; Z91.5 Personal history of self-harm
CPT/HCPCS: 36415; 80053; 81003; 85027; 86593; 86803; 87522; 93005; 93010

== ENCOUNTER 2017-01-13 15:36 | Inpatient (IN) | payer OTHER ==
--- NOTE | 2017-01-13 11:59 | HP ---
[facility] Rehab Assess/Revision - Admission History Admitted to Rehab from: [facility] Date of Admission to Rehab: 01/13/2017 - Vital signs Vital Signs: NOTED; STABLE. - Findings Detox History & Physical reviewed: Yes Concur with findings: Yes Comments/Additional Findings: PATIENT'S MEDICAL / MEDICATION HISTORY REVIEWED PRIOR TO DISCHARGE FROM DETOX UNIT. PATIENT WAS DISCHARGED FROM DETOX UNIT TO BE TRANSFERRED TO REHAB UNIT IN STABLE MEDICAL CONDITION. Inpatient Rehab Admission - Initial Determination Are CD services needed?: Yes Free of communicable disease: Yes Not in need of hospitalization: Yes - Rehab Admission Criteria Previous failed treatment: Yes Comorbidities: Yes Patient is meeting Inpatient Rehab admission criteria:: Yes
--- NOTE | 2017-01-13 15:56 | HP ---
Psychiatrist Admission - Data Date of interview: 01/13/17 Admission source: 3N Identifying data: This is the second [facility] inpatient rehabilitation admission for thsi 56 year old AA male, without children, unemployed and on SSI, [place]. Medical History: HTN, Hypercholesterolemia, Gout, DM, bilateral hips replacement. Psychiatric History: Patient reports was diagnosed with MDD, first psychiatric contact in 2002 following the of his from complications of diabetes, reports he tried to commit a suicide by overdose with drugs and alcohol, states family called 911 and he was brought to [facility], states was overnight there and sent to I detox. second hospitalization at [facility] in 2010 for 2 days(was intoxicated), another psychiatric hospitlaization at [facility] . Reports has been on and off Wellbutrin since 2002, states he sees the psychiatrist at various Er'S/detox/rehab. programs to continue medications.Seen by and continued Wellbutrin 100 mg po daily and Seroquel 50 mg po hs. Physical/Sexual Abuse/Trauma History: Denies history of sexual, physical and verbal abuse. Additional Comment: HS graduate, in special classes for learning disorder. Allergies/Adverse Reactions: Allergies Allergy/AdvReac Type Severity Reaction Status Date / Time metoprolol Allergy Severe Swelling Verified 01/09/17 17:16 Concur with the findings of this exam: Yes - Substance Abuse/Tx History Hx Alcohol Use: Yes ((drinks 10 x 40 oz cans of beer daily.), Cocaine (smoks cocaine daily for ) Hx Substance Use: Yes ((drinks 10 x 40 oz cans of beer daily.), Cocaine (smokes cocaine daily for ) Substance Use Type: Alcohol Hx Substance Use Treatment: Yes ([facility]) Psychiatric Findings - Problem List ([place] 1, 2,3) (1) Alcohol dependence Current Visit: No Status: Active (2) Cocaine dependence Current Visit: No Status: Acute (3) MDD (major depressive disorder) Current Visit: No Status: Chronic Qualifiers: Major depression recurrence: recurrent Active/Remission status: remission status unspecified Qualified Code(s): F33.9 - Major depressive disorder, recurrent, unspecified; F33.9 - Major depressive disorder, recurrent, unspecified; F33.9 - Major depressive disorder, recurrent, unspecified; F33.9 - Major depressive disorder, recurrent, unspecified - Initial Treatment Plan Initial Treatment Plan: will continue his current medications, monitor progress as needed.
--- NOTE | 2017-01-13 17:04 | HP ---
[facility]BERTO WHATLEY Rehab Assess/Revision - Admission History Admitted to Rehab from: [facility] Date of Admission to Rehab: 01/13/17 - Vital signs Vital Signs: Vital Signs Period Temp Pulse Resp BP Sys/Edwards Pulse Ox Last 24 Hr 98 F 93 18 132/68 - Findings Detox History & Physical reviewed: Yes Concur with findings: Yes Comments/Additional Findings: TRANSFERRED FROM DETOX TO REHAB ADMISSION PER PROTOCOL
[2017-01-13] MEDS ORDERED: IBUPROFEN 400 MG TABLET (FP) PO PRN (17:05)
[2017-01-13] MEDS ORDERED: diphenhydrAMINE HCL 50 MG CAPSULE PO PRN (17:05)
[2017-01-13] MEDS ORDERED: MENTHOL/PHENOL 1 EACH UD MM PRN (17:05)
[2017-01-13] MEDS ORDERED: MAGNESIUM CITRATE 300 ML BOTTLE PO PRN (17:05)
[2017-01-13] MEDS ORDERED: P-EPHED 60MG/TRIPROLIDI 2.5MG TABLET PO PRN (17:05)
[2017-01-13] MEDS ORDERED: MAGNESIUM HYDROX 2400MG/30ML ORAL SUSPENSION 30 ML CUP PO PRN (17:05)
[2017-01-13] MEDS ORDERED: MAG HYDROX/AL HYDROX/SIMETH 30 ML UNIT-DOSE CUP PO PRN (17:05)
[2017-01-13] MEDS ORDERED: NICOTINE POLACRILEX 2 MG GUM BUC PRN (17:05)
[2017-01-13] MEDS ORDERED: guaiFENesin/D-METHORPHAN HB 10 ML UNIT-DOSE CUPS PO PRN (17:05)
[2017-01-13] MEDS ORDERED: LOPERAMIDE HCL 2 MG CAPSULE PO PRN (17:05)
--- NOTE | 2017-01-13 17:05 | HP ---
Admission ROS [facility] - HPI Allergies/Adverse Reactions: Allergies Allergy/AdvReac Type Severity Reaction Status Date / Time metoprolol Allergy Severe Swelling Verified 01/09/17 17:16 - Ebola screening Have you traveled outside of the country in the last 21 days: No Have you had contact with anyone from an Ebola affected area: No Do you have a fever: No Patient History - Patient Medical History Hx Anemia: No Hx Asthma: No Hx Chronic Obstructive Pulmonary Disease (COPD): No Hx Cancer: No Hx Cardiac Disorders: No Hx Congestive Heart Failure: No Hx Hypertension: Yes Hx Hypercholesterolemia: Yes (lipitor 20 MGS PO NIGHTLY) Hx Pacemaker: No HX Cerebrovascular Accident: No Hx Seizures: No Hx Dementia: No Hx Diabetes: Yes Hx Gastrointestinal Disorders: No Hx Liver Disease: No Hx Genitourinary Disorders: No Hx Sexually Transmitted Disorders: No Hx Renal Disease (ESRD): No Hx Thyroid Disease: No Hx Human Immunodeficiency Virus (HIV): No Hx Hepatitis C: No Hx Depression: Yes Hx Suicide Attempt: Yes (2003 overdose) Hx Bipolar Disorder: No Hx Schizophrenia: No - Patient Surgical History Past Surgical History: Yes Hx Neurologic Surgery: No Hx Cataract Extraction: No Hx Cardiac Surgery: No Hx Lung Surgery: No Hx Breast Surgery: No Hx Breast Biopsy: No Hx Abdominal Surgery: No Hx Appendectomy: No Hx Cholecystectomy: No Hx Genitourinary Surgery: No Hx Section: No Hx Orthopedic Surgery: Yes (bilateral hip sx in 1966) Other Surgical History: right thigh in 12/19/2004 Anesthesia Reaction: No - PPD History Date: 01/11/17 Results: 0 mm. - Smoking Cessation Smoking history: Former smoker Have you smoked in the past 12 months: No Hx Chewing Tobacco Use: No Initiated information on smoking cessation: No - Substances Abused Cocaine Route: Smoking Frequency: Daily Amount used: $100 Age of first use: 34 Date of Last Use: 01/07/17 Alcohol Route: Oral Frequency: Daily Amount used: 10 cans x 40 oz Age of first use: 18 Date of Last Use: 01/09/17 Family Disease History - Family Disease History Family Disease History: Heart Disease: Mother, Other: Father (/alcohol) , Brother (ALCOHOL) Admission Physical Exam S - Vital Signs Vital Signs: Vital Signs - 24 hr 01/13/17 16:47 Temperature 98 F Pulse Rate 93 H Respiratory 18 Rate Blood Pressure 132/68 [facility] Breath Alcohol Content Breath Alcohol Content: 0.127 Inpatient Rehab Admission - Initial Determination Are CD services needed?: Yes Free of communicable disease: Yes Not in need of hospitalization: Yes - Rehab Admission Criteria Previous failed treatment: Yes Poor recovery environment: Yes Comorbidities: Yes Lacks judgement: No Patient is meeting Inpatient Rehab admission criteria:: Yes
[2017-01-13] MEDS ORDERED: NICOTINE 14 MG/24 HOURS TOPICAL PATCH TD PRN (17:45)
[2017-01-13] MEDS: INSULIN SLIDING SCALE (NOVOLOG) 1 VIAL SQ SCH ×3 (17:53→22:11)
[2017-01-13] MEDS: metFORMIN HCL 500 MG TABLET (FP) PO SCH (17:55)
[2017-01-13] MEDS ORDERED: INSULIN (NOVOLOG) ASPART 100 UNITS/ML 10ML VIAL ONE ×2 (17:58→22:27)
--- NOTE | 2017-01-13 20:31 | PN ---
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 Mr Rodríguez is known to service writer advisor.Seen on on 01/10/17. Plan : Wellbutrin 100 mg po daily Seroquel 50 mg po hs Ordered as requested by nurse on duty.
[2017-01-13] MEDS: THIAMINE HCL 100 MG TABLET (FP) PO SCH (22:12)
[2017-01-13] MEDS: QUEtiapine FUMARATE 50 MG TABLET PO SCH (22:12)
[2017-01-13] MEDS: ATORVASTATIN CA 20 MG TABLET (FP) PO SCH (22:12)
[2017-01-14] MEDS: metFORMIN HCL 500 MG TABLET (FP) PO SCH ×2 (06:35→16:57)
[2017-01-14] MEDS: INSULIN SLIDING SCALE (NOVOLOG) 1 VIAL SQ SCH ×4 (06:36→21:50)
[2017-01-14] MEDS ORDERED: INSULIN (NOVOLOG) ASPART 100 UNITS/ML 10ML VIAL ONE ×3 (07:01→18:12)
[2017-01-14] MEDS: PRENATAL VITAMINS W/ FOLIC ACID TABLET (FP) PO SCH (10:50)
[2017-01-14] MEDS: buPROPion HCL 100 MG TABLET PO SCH (10:50)
[2017-01-14] MEDS: THIAMINE HCL 100 MG TABLET (FP) PO SCH (21:49)
[2017-01-14] MEDS: ATORVASTATIN CA 20 MG TABLET (FP) PO SCH (21:49)
[2017-01-14] MEDS: QUEtiapine FUMARATE 50 MG TABLET PO SCH (21:49)
[2017-01-15] MEDS: metFORMIN HCL 500 MG TABLET (FP) PO SCH ×2 (06:19→16:46)
[2017-01-15] MEDS: INSULIN SLIDING SCALE (NOVOLOG) 1 VIAL SQ SCH ×4 (06:19→21:51)
[2017-01-15] MEDS ORDERED: INSULIN (NOVOLOG) ASPART 100 UNITS/ML 10ML VIAL ONE ×2 (06:47→22:12)
[2017-01-15] MEDS: PRENATAL VITAMINS W/ FOLIC ACID TABLET (FP) PO SCH (10:36)
[2017-01-15] MEDS: buPROPion HCL 100 MG TABLET PO SCH (10:36)
[2017-01-15] MEDS: QUEtiapine FUMARATE 50 MG TABLET PO SCH (21:50)
[2017-01-15] MEDS: THIAMINE HCL 100 MG TABLET (FP) PO SCH (21:50)
[2017-01-15] MEDS: ATORVASTATIN CA 20 MG TABLET (FP) PO SCH (21:50)
[2017-01-16] MEDS: metFORMIN HCL 500 MG TABLET (FP) PO SCH ×2 (06:34→16:40)
[2017-01-16] MEDS: INSULIN SLIDING SCALE (NOVOLOG) 1 VIAL SQ SCH ×4 (06:36→21:49)
[2017-01-16] MEDS ORDERED: INSULIN (NOVOLOG) ASPART 100 UNITS/ML 10ML VIAL ONE ×3 (07:15→16:37)
[2017-01-16] MEDS: PRENATAL VITAMINS W/ FOLIC ACID TABLET (FP) PO SCH (11:07)
[2017-01-16] MEDS: buPROPion HCL 100 MG TABLET PO SCH (11:07)
[2017-01-16] MEDS: QUEtiapine FUMARATE 50 MG TABLET PO SCH (21:49)
[2017-01-16] MEDS: THIAMINE HCL 100 MG TABLET (FP) PO SCH (21:49)
[2017-01-16] MEDS: ATORVASTATIN CA 20 MG TABLET (FP) PO SCH (21:49)
[2017-01-17] MEDS: metFORMIN HCL 500 MG TABLET (FP) PO SCH ×2 (06:52→16:56)
[2017-01-17] MEDS: INSULIN SLIDING SCALE (NOVOLOG) 1 VIAL SQ SCH ×4 (06:53→21:48)
[2017-01-17] MEDS ORDERED: INSULIN (NOVOLOG) ASPART 100 UNITS/ML 10ML VIAL ONE ×4 (07:11→22:07)
[2017-01-17] MEDS: buPROPion HCL 100 MG TABLET PO SCH (09:58)
[2017-01-17] MEDS: PRENATAL VITAMINS W/ FOLIC ACID TABLET (FP) PO SCH (09:58)
[2017-01-17] MEDS: QUEtiapine FUMARATE 50 MG TABLET PO SCH (21:48)
[2017-01-17] MEDS: THIAMINE HCL 100 MG TABLET (FP) PO SCH (21:48)
[2017-01-17] MEDS: ATORVASTATIN CA 20 MG TABLET (FP) PO SCH (21:48)
[2017-01-18] MEDS: metFORMIN HCL 500 MG TABLET (FP) PO SCH ×2 (06:44→16:49)
[2017-01-18] MEDS: INSULIN SLIDING SCALE (NOVOLOG) 1 VIAL SQ SCH ×4 (06:44→21:39)
[2017-01-18] MEDS ORDERED: INSULIN (NOVOLOG) ASPART 100 UNITS/ML 10ML VIAL ONE ×3 (07:19→21:49)
[2017-01-18] MEDS: PRENATAL VITAMINS W/ FOLIC ACID TABLET (FP) PO SCH (10:36)
[2017-01-18] MEDS: buPROPion HCL 100 MG TABLET PO SCH (10:36)
[2017-01-18] MEDS: ACETAMINOPHEN 325 MG TABLET (FP) PO PRN ×2 (10:37→21:40)
[2017-01-18] MEDS: QUEtiapine FUMARATE 50 MG TABLET PO SCH (21:38)
[2017-01-18] MEDS: THIAMINE HCL 100 MG TABLET (FP) PO SCH (21:38)
[2017-01-18] MEDS: ATORVASTATIN CA 20 MG TABLET (FP) PO SCH (21:38)
[2017-01-19] MEDS: metFORMIN HCL 500 MG TABLET (FP) PO SCH ×2 (06:20→16:48)
[2017-01-19] MEDS: INSULIN SLIDING SCALE (NOVOLOG) 1 VIAL SQ SCH ×4 (06:21→22:01)
[2017-01-19] MEDS ORDERED: INSULIN (NOVOLOG) ASPART 100 UNITS/ML 10ML VIAL ONE ×3 (06:41→23:14)
[2017-01-19] MEDS: buPROPion HCL 100 MG TABLET PO SCH (10:33)
[2017-01-19] MEDS: PRENATAL VITAMINS W/ FOLIC ACID TABLET (FP) PO SCH (10:33)
[2017-01-19] MEDS ORDERED: QUEtiapine FUMARATE 25 MG TABLET (FP) ONE (20:57)
[2017-01-19] MEDS: THIAMINE HCL 100 MG TABLET (FP) PO SCH (22:00)
[2017-01-19] MEDS: ATORVASTATIN CA 20 MG TABLET (FP) PO SCH (22:00)
[2017-01-19] MEDS: QUEtiapine FUMARATE 50 MG TABLET PO SCH (22:00)
[2017-01-20] MEDS: metFORMIN HCL 500 MG TABLET (FP) PO SCH ×2 (06:28→16:51)
[2017-01-20] MEDS: INSULIN SLIDING SCALE (NOVOLOG) 1 VIAL SQ SCH ×4 (06:29→21:38)
[2017-01-20] MEDS ORDERED: INSULIN (NOVOLOG) ASPART 100 UNITS/ML 10ML VIAL ONE ×3 (07:34→17:20)
[2017-01-20] MEDS: buPROPion HCL 100 MG TABLET PO SCH (10:12)
[2017-01-20] MEDS: PRENATAL VITAMINS W/ FOLIC ACID TABLET (FP) PO SCH (10:12)
[2017-01-20] MEDS: ACETAMINOPHEN 325 MG TABLET (FP) PO PRN (10:13)
[2017-01-20] MEDS: NAPROXEN 500 MG TABLET (FP) PO SCH ×2 (11:49→21:39)
[2017-01-20] MEDS: QUEtiapine FUMARATE 50 MG TABLET PO SCH (21:39)
[2017-01-20] MEDS: THIAMINE HCL 100 MG TABLET (FP) PO SCH (21:39)
[2017-01-20] MEDS: ATORVASTATIN CA 20 MG TABLET (FP) PO SCH (21:39)
[2017-01-21] MEDS: metFORMIN HCL 500 MG TABLET (FP) PO SCH ×2 (06:26→16:38)
[2017-01-21] MEDS: INSULIN SLIDING SCALE (NOVOLOG) 1 VIAL SQ SCH ×4 (07:41→21:42)
[2017-01-21] MEDS ORDERED: INSULIN (NOVOLOG) ASPART 100 UNITS/ML 10ML VIAL ONE ×3 (07:44→16:49)
[2017-01-21] MEDS: PANTOPRAZOLE 40 MG TABLET (FP) PO SCH (10:43)
[2017-01-21] MEDS: NAPROXEN 500 MG TABLET (FP) PO SCH ×2 (10:43→21:42)
[2017-01-21] MEDS: buPROPion HCL 100 MG TABLET PO SCH (10:43)
[2017-01-21] MEDS: PRENATAL VITAMINS W/ FOLIC ACID TABLET (FP) PO SCH (10:43)
[2017-01-21] MEDS: ATORVASTATIN CA 20 MG TABLET (FP) PO SCH (21:42)
[2017-01-21] MEDS: QUEtiapine FUMARATE 50 MG TABLET PO SCH (21:42)
[2017-01-21] MEDS: THIAMINE HCL 100 MG TABLET (FP) PO SCH (21:42)
[2017-01-22] MEDS: metFORMIN HCL 500 MG TABLET (FP) PO SCH ×2 (06:18→16:34)
[2017-01-22] MEDS: INSULIN SLIDING SCALE (NOVOLOG) 1 VIAL SQ SCH ×4 (06:19→22:00)
[2017-01-22] MEDS ORDERED: INSULIN (NOVOLOG) ASPART 100 UNITS/ML 10ML VIAL ONE ×4 (06:38→22:24)
[2017-01-22] MEDS: NAPROXEN 500 MG TABLET (FP) PO SCH ×2 (10:18→21:59)
[2017-01-22] MEDS: buPROPion HCL 100 MG TABLET PO SCH (10:18)
[2017-01-22] MEDS: PRENATAL VITAMINS W/ FOLIC ACID TABLET (FP) PO SCH (10:18)
[2017-01-22] MEDS: PANTOPRAZOLE 40 MG TABLET (FP) PO SCH (10:18)
[2017-01-22] MEDS: ATORVASTATIN CA 20 MG TABLET (FP) PO SCH (21:59)
[2017-01-22] MEDS: QUEtiapine FUMARATE 50 MG TABLET PO SCH (21:59)
[2017-01-22] MEDS: THIAMINE HCL 100 MG TABLET (FP) PO SCH (21:59)
[2017-01-23] MEDS: metFORMIN HCL 500 MG TABLET (FP) PO SCH ×2 (06:22→16:53)
[2017-01-23] MEDS ORDERED: INSULIN (NOVOLOG) ASPART 100 UNITS/ML 10ML VIAL ONE ×4 (07:14→22:23)
[2017-01-23] MEDS: INSULIN SLIDING SCALE (NOVOLOG) 1 VIAL SQ SCH ×4 (07:50→22:08)
[2017-01-23] MEDS: NAPROXEN 500 MG TABLET (FP) PO SCH ×2 (10:55→22:07)
[2017-01-23] MEDS: buPROPion HCL 100 MG TABLET PO SCH (10:55)
[2017-01-23] MEDS: PRENATAL VITAMINS W/ FOLIC ACID TABLET (FP) PO SCH (10:55)
[2017-01-23] MEDS: PANTOPRAZOLE 40 MG TABLET (FP) PO SCH (10:55)
[2017-01-23] MEDS: ATORVASTATIN CA 20 MG TABLET (FP) PO SCH (22:07)
[2017-01-23] MEDS: THIAMINE HCL 100 MG TABLET (FP) PO SCH (22:07)
[2017-01-23] MEDS: QUEtiapine FUMARATE 50 MG TABLET PO SCH (22:07)
[2017-01-24] MEDS: metFORMIN HCL 500 MG TABLET (FP) PO SCH ×2 (06:33→16:49)
[2017-01-24] MEDS: INSULIN SLIDING SCALE (NOVOLOG) 1 VIAL SQ SCH ×4 (06:34→21:57)
[2017-01-24] MEDS ORDERED: INSULIN (NOVOLOG) ASPART 100 UNITS/ML 10ML VIAL ONE ×4 (06:56→22:18)
[2017-01-24] MEDS: PRENATAL VITAMINS W/ FOLIC ACID TABLET (FP) PO SCH (10:29)
[2017-01-24] MEDS: NAPROXEN 500 MG TABLET (FP) PO SCH ×2 (10:29→21:56)
[2017-01-24] MEDS: buPROPion HCL 100 MG TABLET PO SCH (10:29)
[2017-01-24] MEDS: PANTOPRAZOLE 40 MG TABLET (FP) PO SCH (10:29)
[2017-01-24] MEDS: THIAMINE HCL 100 MG TABLET (FP) PO SCH (21:56)
[2017-01-24] MEDS: QUEtiapine FUMARATE 50 MG TABLET PO SCH (21:56)
[2017-01-24] MEDS: ATORVASTATIN CA 20 MG TABLET (FP) PO SCH (21:56)
[2017-01-25] MEDS: metFORMIN HCL 500 MG TABLET (FP) PO SCH ×2 (06:30→16:41)
[2017-01-25] MEDS: INSULIN SLIDING SCALE (NOVOLOG) 1 VIAL SQ SCH ×4 (06:31→21:58)
[2017-01-25] MEDS ORDERED: INSULIN (NOVOLOG) ASPART 100 UNITS/ML 10ML VIAL ONE ×5 (07:05→22:37)
[2017-01-25] MEDS: PRENATAL VITAMINS W/ FOLIC ACID TABLET (FP) PO SCH (10:55)
[2017-01-25] MEDS: buPROPion HCL 100 MG TABLET PO SCH (10:55)
[2017-01-25] MEDS: PANTOPRAZOLE 40 MG TABLET (FP) PO SCH (10:55)
[2017-01-25] MEDS: NAPROXEN 500 MG TABLET (FP) PO SCH ×2 (10:55→21:57)
[2017-01-25] MEDS: QUEtiapine FUMARATE 50 MG TABLET PO SCH (21:57)
[2017-01-25] MEDS: ATORVASTATIN CA 20 MG TABLET (FP) PO SCH (21:57)
[2017-01-25] MEDS: THIAMINE HCL 100 MG TABLET (FP) PO SCH (21:57)
[2017-01-26] MEDS: INSULIN SLIDING SCALE (NOVOLOG) 1 VIAL SQ SCH ×4 (06:36→21:42)
[2017-01-26] MEDS: metFORMIN HCL 500 MG TABLET (FP) PO SCH ×2 (06:36→16:41)
[2017-01-26] MEDS ORDERED: INSULIN (NOVOLOG) ASPART 100 UNITS/ML 10ML VIAL ONE ×3 (07:49→16:43)
[2017-01-26] MEDS: buPROPion HCL 100 MG TABLET PO SCH (10:42)
[2017-01-26] MEDS: NAPROXEN 500 MG TABLET (FP) PO SCH (10:42)
[2017-01-26] MEDS: PANTOPRAZOLE 40 MG TABLET (FP) PO SCH (10:42)
[2017-01-26] MEDS: PRENATAL VITAMINS W/ FOLIC ACID TABLET (FP) PO SCH (10:42)
--- NOTE | 2017-01-26 11:20 | PN ---
[facility] Progress Note (SOAP) Subjective: Patient c/o bilateral hip pain r>l awaiting hip replacement was started on naprosyn atc for pain no c/o lack sttol concerned bleeding from medication as he has had a gi bleed from motrin in past. Objective: 01/26/17 11:18 Vital Signs - 24 hr 01/26/17 01/26/17 01/26/17 00:30 03:30 07:13 Temperature 97.3 F L Pulse Rate 93 H Respiratory 18 18 18 Rate Blood Pressure 142/87 Laboratory Tests 01/13/17 01/14/17 01/14/17 22:11 06:35 11:58 POC Glucometer 350 277 297 01/14/17 01/14/17 01/15/17 16:55 20:38 06:18 POC Glucometer 296 400 332 01/15/17 01/15/17 01/15/17 12:01 16:45 20:43 POC Glucometer 343 373 373 01/16/17 01/16/17 01/16/17 06:34 11:18 16:34 POC Glucometer 299 407 307 01/16/17 01/17/17 01/17/17 20:38 06:52 12:00 POC Glucometer 383 266 279 01/17/17 01/17/17 01/18/17 16:55 20:31 06:44 POC Glucometer 312 281 203 01/18/17 01/18/17 01/18/17 12:08 16:48 20:22 POC Glucometer 272 277 378 01/19/17 01/19/17 01/19/17 06:19 11:53 16:46 POC Glucometer 307 254 259 01/19/17 01/20/17 01/20/17 20:46 06:28 11:49 POC Glucometer 306 277 247 01/20/17 01/20/17 01/21/17 16:50 20:50 06:26 POC Glucometer 273 274 254 01/21/17 01/21/17 01/21/17 12:01 16:36 20:45 POC Glucometer 207 248 296 01/22/17 01/22/17 01/22/17 06:18 11:59 16:35 POC Glucometer 237 255 255 01/22/17 01/23/17 01/23/17 20:30 06:22 11:57 POC Glucometer 202 224 237 01/23/17 01/23/17 01/24/17 16:34 20:31 06:32 POC Glucometer 199 221 173 01/24/17 01/24/17 01/24/17 11:53 16:46 20:49 POC Glucometer 232 251 228 01/25/17 01/25/17 01/25/17 06:29 11:54 16:40 POC Glucometer 187 233 211 01/25/17 01/26/17 20:53 06:35 POC Glucometer 206 236 Laboratory Last Values POC Glucometer 236 UNITS (()) 01/26/17 06:35 nad, ambulating with walker VSS Assessment: 01/26/17 11:19 gastritis, oa both hips with chronic pain Plan: gastritis r/o GI bleed check CBC d/c naprosyn and protonix does not report abdo discomfort or pain start flexeril tid for pain and tylenoprn
[2017-01-26] MEDS: CYCLOBENZAPRINE HCL 5 MG TABLET PO SCH ×2 (14:15→21:41)
[2017-01-26] MEDS: ATORVASTATIN CA 20 MG TABLET (FP) PO SCH (21:41)
[2017-01-26] MEDS: THIAMINE HCL 100 MG TABLET (FP) PO SCH (21:41)
[2017-01-26] MEDS: QUEtiapine FUMARATE 50 MG TABLET PO SCH (21:41)
[2017-01-27] MEDS: metFORMIN HCL 500 MG TABLET (FP) PO SCH (06:36)
[2017-01-27] MEDS: CYCLOBENZAPRINE HCL 5 MG TABLET PO SCH (06:36)
[2017-01-27] MEDS: INSULIN SLIDING SCALE (NOVOLOG) 1 VIAL SQ SCH (06:36)
[2017-01-27 07:03] VITALS: BP 139/84; PULSE 98; TEMP 97.8
[2017-01-27] MEDS ORDERED: INSULIN (NOVOLOG) ASPART 100 UNITS/ML 10ML VIAL ONE (07:09)
--- NOTE | 2017-01-27 09:52 | PN ---
Psychiatric Progress Note Vital Signs: Vital Signs Period Temp Pulse Resp BP Sys/Edwards Pulse Ox Last 24 Hr 97.8 F 98 18-18 139/84 Date of Session: 01/27/17 Chief Complaint:: discharge visit HPI: Patient has addressed alcohol, cocaine dependence comorbid MDD. ROS: HTN, Hypercholesterolemia, Gout, DM, bilateral hips replacement medically managed. Current Medications: Active Medications Generic Name Dose Route Start Last Admin Trade Name Freq PRN Reason Stop Dose Admin Acetaminophen 650 mg 01/13/17 17:05 01/20/17 10:13 Tylenol - PO 650 mg Q4H PRN Administration FEVER OR PAIN Al Hydroxide/Mg Hydroxide 30 ml 01/13/17 17:05 Mylanta Oral Suspension - PO Q6H PRN DYSPEPSIA Atorvastatin Calcium 20 mg 01/13/17 22:00 01/26/17 21:41 Lipitor - PO 20 mg HS ANA Administration Bupropion HCl 100 mg 01/14/17 10:00 01/26/17 10:42 Wellbutrin - PO 100 mg DAILY ANA Administration Cyclobenzaprine HCl 5 mg 01/26/17 14:00 01/27/17 06:36 Cyclobenzaprine Hcl PO 5 mg TID ANA Administration Eucalyptus/Menthol/Phenol/Sorbitol 1 each 01/13/17 17:05 Cepastat Lozenge - MM Q4H PRN SORE THROAT Guaifenesin 10 ml 01/13/17 17:05 Robitussin Dm - PO Q6H PRN COUGH Insulin Aspart 1 vial 01/16/17 11:55 01/27/17 06:36 Novolog Vial Sliding Scale - SQ 4 unit ACHS ANA Administration Protocol Loperamide HCl 4 mg 01/13/17 17:05 Imodium - PO Q6H PRN DIARRHEA Magnesium Hydroxide 30 ml 01/13/17 17:05 Milk Of Magnesia - PO DAILY PRN CONSTIPATION Metformin HCl 500 mg 01/13/17 17:45 01/27/17 06:36 Glucophage - PO 500 mg BID@0700,1630 ANA Administration Nicotine 14 mg 01/13/17 17:45 Nicoderm Patch - TD DAILY PRN WITHDRAWAL(CONT SUBST) Nicotine Polacrilex 2 mg 01/13/17 17:05 Nicorette Gum - BUC Q2H PRN NICOTINE REPLACEMENT RX Multivit/Folic Acid/Iron 1 tab 01/14/17 10:00 10/23/17 10:42 Vitamins (Sjr) - PO 1 tab DAILY ANA Administration Pseudoephedrine/Triprolidine 1 combo 01/13/17 17:05 Actifed - PO TID PRN NASAL CONGESTION Quetiapine Fumarate 50 mg 01/13/17 22:00 01/26/17 21:41 Seroquel - PO 50 mg HS ANA Administration Thiamine HCl 100 mg 01/13/17 22:00 01/26/17 21:41 Vitamin B1 - PO 100 mg HS ANA Administration Current Side Effect: No Lab tests ordered: No Lab tests reviewed: Yes Provider note:: Patient has completed today his treatment and met his identified goals, will continue to address his issues at [facility] drug addiction program. He reports improved mood, adequate sleep. He gained insight into the negative consequences of addictions and motivated to continue maintain his sobriety. Medications Wellbutrin and Seroquel well tolerated, scripts provided .Mental status is unremarkable.Patient is stable for discharge today. Total face to face time:: 25 Mental Status Exam - Mental Status Exam Alert and Oriented to: Time, Place, Person Cognitive Function: Good Patient Appearance: Well Groomed Mood: Hopeful Affect: Appropriate, Mood Congruent Patient Behavior: Appropriate, Cooperative Speech Pattern: Clear, Appropriate Voice Loudness: Normal Thought Process: Intact, Goal Oriented Thought Disorder: Not Present Hallucinations: Denies Suicidal Ideation: Denies Homicidal Ideation: Denies Insight/Judgement: Fair Sleep: Fair Appetite: Fair Muscle strength/Tone: Normal Gait/Station: Other (ambulates with walker.) Psychiatric Treatment Plan - Problem List (1) Alcohol dependence Current Visit: No (2) Cocaine dependence Current Visit: No (3) MDD (major depressive disorder) Current Visit: No Qualifiers: Major depression recurrence: recurrent Active/Remission status: remission status unspecified Qualified Code(s): F33.9 - Major depressive disorder, recurrent, unspecified; F33.9 - Major depressive disorder, recurrent, unspecified; F33.9 - Major depressive disorder, recurrent, unspecified; F33.9 - Major depressive disorder, recurrent, unspecified
[2017-01-27] MEDS: PRENATAL VITAMINS W/ FOLIC ACID TABLET (FP) PO SCH (10:14)
[2017-01-27] MEDS: buPROPion HCL 100 MG TABLET PO SCH (10:14)
[2017-01-27 16:05] LABS: BASOPHIL 1.1 % (0-2.0); EOSINOPHIL 2.9 % (0-4.5); MCHC 33.4 g/dl (32.0-35.9); MEAN CELL VOLUME 89.9 fl (80-96); MEAN PLT VOLUME 8.2 fl (7.5-11.1); NEUTROPHILS 47.3 % (42.8-82.8); PLATELET COUNT 398 K/MM3 (134-434); RDW 13.3 % (11.9-15.9); WHITE BLOOD COUNT 9.1 K/mm3 (4.0-10.0)
== END 2017-01-27 10:45 | disposition home or self-care (01) | DRG 772 ==
LOC: YASAS 15:36 → Y5N 15:43
PROVIDERS: ADMIT Psychiatry & Neurology Psychiatry; ATTEND Psychiatry & Neurology Psychiatry
PROC: HZ42ZZZ Group Counseling for Substance Abuse Treatment, Cognitive-Behavioral (ICD-10-PCS; principal; 2017-01-13)
DX: F10.20 Alcohol dependence, uncomplicated (principal); F14.20 Cocaine dependence, uncomplicated; F33.9 Major depressive disorder, recurrent, unspecified; I10 Essential (primary) hypertension; E78.00 Pure hypercholesterolemia, unspecified; E11.9 Type 2 diabetes mellitus without complications; M10.9 Gout, unspecified; K29.70 Gastritis, unspecified, without bleeding; M16.0 Bilateral primary osteoarthritis of hip; M25.552 Pain in left hip; M25.551 Pain in right hip; Z87.891 Personal history of nicotine dependence; Z88.8 Allergy status to other drugs, medicaments and biological substances; Z91.5 Personal history of self-harm
CPT/HCPCS: 36415; 85025

== ENCOUNTER 2017-08-12 14:28 | Inpatient (IN) | payer OTHER ==
[2017-08-12 15:56] VITALS: BMI 27.4
--- NOTE | 2017-08-12 18:15 | HP ---
Admission ROS [facility] Chief Complaint: ETOH dependence Allergies/Adverse Reactions: Allergies Allergy/AdvReac Type Severity Reaction Status Date / Time metoprolol Allergy Severe Swelling Verified 08/12/17 17:43 Beef Containing Products Allergy Verified 08/12/17 17:43 History of Present Illness: Patient presents for ETOH dependence. Completed detox today at [facility]. Started drinking at age 17, 24 cans of beer daily. Last drink 08/08/17. Denies seizures. Has PMH of DM,GOUT, OA, HTN and HLD. Patient reports noncomplaince with medication. Only takes DM medication. Denies history of Hepatitis C and HIV. Also has history of depression. Denies SI/HI and suicide attempts. Exam Limitations: Physical Impairment - Ebola screening Have you traveled outside of the country in the last 21 days: No Have you had contact with anyone from an Ebola affected area: No Have you been sick,other than usual withdrawal symptoms: No Do you have a fever: No - Review of Systems Constitutional: No Symptoms Reported EENT: reports: No Symptoms Reported Respiratory: reports: No Symptoms reported Cardiac: reports: No Symptoms Reported GI: reports: Abdominal cramping : reports: No Symptoms Reported Musculoskeletal: reports: Back Pain, Joint Pain Integumentary: reports: No Symptoms Reported Neuro: reports: Headache Endocrine: reports: No Symptoms Reported Hematology: reports: No Symptoms Reported Psychiatric: reports: Orientated x3, Depressed Patient History - Patient Medical History Hx Anemia: No Hx Asthma: No Hx Chronic Obstructive Pulmonary Disease (COPD): No Hx Cancer: No Hx Cardiac Disorders: No Hx Congestive Heart Failure: No Hx Hypertension: Yes (non-complaint with medication) Hx Hypercholesterolemia: Yes (noncompliant with medication) Hx Pacemaker: No HX Cerebrovascular Accident: No Hx Seizures: No Hx Dementia: No Hx Diabetes: Yes Hx Gastrointestinal Disorders: No Hx Liver Disease: No Hx Genitourinary Disorders: No Hx Sexually Transmitted Disorders: No Hx Renal Disease (ESRD): No Hx Thyroid Disease: No Hx Human Immunodeficiency Virus (HIV): No Hx Hepatitis C: No Hx Depression: Yes Hx Suicide Attempt: No Hx Bipolar Disorder: No Hx Schizophrenia: No - Patient Surgical History Past Surgical History: Yes Hx Neurologic Surgery: No Hx Cataract Extraction: No Hx Cardiac Surgery: No Hx Lung Surgery: No Hx Breast Surgery: No Hx Breast Biopsy: No Hx Abdominal Surgery: No Hx Appendectomy: No Hx Cholecystectomy: No Hx Genitourinary Surgery: No Hx Section: No Hx Orthopedic Surgery: Yes (bilateral hip sx in 1967) Other Surgical History: right thigh in 12/19/2004 Anesthesia Reaction: No - PPD History Date: 01/11/17 Results: 0 mm. PPD to be Administered?: No - Smoking Cessation Smoking history: Former smoker Have you smoked in the past 12 months: No Hx Chewing Tobacco Use: No Initiated information on smoking cessation: No - Substance & Tx. History Hx Alcohol Use: Yes Hx Substance Use: No Substance Use Type: Alcohol Hx Substance Use Treatment: Yes - Substances Abused Alcohol Route: Oral Frequency: Daily Amount used: BEER Age of first use: 18 Date of Last Use: 08/12/17 Family Disease History - Family Disease History Family Disease History: Heart Disease: Mother (alive), Other: Father (/ alcohol), Brother (ALCOHOL) Admission Physical Exam S - Vital Signs Vital Signs: Vital Signs - 24 hr 08/12/17 15:55 Temperature 97.6 F Pulse Rate 100 H Respiratory 20 Rate Blood Pressure 128/76 Cleared for Admission S - Detox or Rehab Claeared for Rehab Admission: Yes [facility] Breath Alcohol Content Breath Alcohol Content: 0 Urine Drug Screen - Results Drug Screen Negative: No Urine Drug Screen Results: BZO-Benzodiazepines Inpatient Rehab Admission - Initial Determination Are CD services needed?: Yes Free of communicable disease: Yes Not in need of hospitalization: Yes - Rehab Admission Criteria Previous failed treatment: Yes Poor recovery environment: Yes Comorbidities: Yes Lacks judgement: Yes Patient is meeting Inpatient Rehab admission criteria:: Yes
[2017-08-12] MEDS ORDERED: MAGNESIUM CITRATE 300 ML BOTTLE PO PRN (18:20)
[2017-08-12] MEDS ORDERED: P-EPHED 60MG/TRIPROLIDI 2.5MG TABLET PO PRN (18:20)
[2017-08-12] MEDS ORDERED: MAG HYDROX/AL HYDROX/SIMETH 30 ML UNIT-DOSE CUP PO PRN (18:20)
[2017-08-12] MEDS ORDERED: LOPERAMIDE HCL 2 MG CAPSULE PO PRN (18:20)
[2017-08-12] MEDS ORDERED: ACETAMINOPHEN 325 MG TABLET (FP) PO PRN (18:20)
[2017-08-12] MEDS ORDERED: guaiFENesin/D-METHORPHAN HB 10 ML UNIT-DOSE CUPS PO PRN (18:20)
[2017-08-12] MEDS ORDERED: MENTHOL/PHENOL 1 EACH UD MM PRN (18:20)
[2017-08-12] MEDS ORDERED: MAGNESIUM HYDROX 2400MG/30ML ORAL SUSPENSION 30 ML CUP PO PRN (18:20)
[2017-08-12] MEDS ORDERED: hydrOXYzine PAMOATE 50 MG CAPSULE (FP) PO PRN (18:20)
[2017-08-12] MEDS: THIAMINE HCL 100 MG TABLET (FP) PO SCH (21:39)
[2017-08-12] MEDS ORDERED: MELATONIN 5 MG TABLETS PO PRN (22:00)
[2017-08-12 23:09] LABS: URINE APPEARANCE CLEAR; URINE BILIRUBIN NEGATIVE (<2.0 mg/dL); URINE COLOR LTYELLOW; URINE GLUCOSE (UA) NEGATIVE (NEGATIVE); URINE KETONE NEGATIVE (NEGATIVE); URINE LEUK ESTERASE NEGATIVE (NEGATIVE); URINE NITRITE NEGATIVE (NEGATIVE); URINE PROTEIN NEGATIVE (NEGATIVE); URINE UROBILINOGEN NEGATIVE mg/dL (0.2-1.0)
[2017-08-13] MEDS: metFORMIN HCL 500 MG TABLET (FP) PO SCH ×2 (06:43→16:45)
[2017-08-13] MEDS: IBUPROFEN 400 MG TABLET (FP) PO PRN ×2 (08:08→21:40)
[2017-08-13 10:00] LABS: HEMATOCRIT 39.9 % (35.4-49); HEMOGLOBIN 13.1 GM/dL (11.7-16.9); MCH 29.1 pg (25.7-33.7); MCHC 32.8 g/dl (32.0-35.9); MEAN CELL VOLUME 88.9 fl (80-96); PLATELET COUNT 367 K/MM3 (134-434); RBC 4.49 M/mm3 (4.00-5.60); WHITE BLOOD COUNT 8.4 K/mm3 (4.0-10.0)
[2017-08-13 10:11] LABS: CHLORIDE 100 mmol/L (98-107); POTASSIUM 4.7 mmol/L (3.5-5.1); SODIUM 137 mmol/L (136-145)
[2017-08-13 10:22] LABS: ALBUMIN 3.5 g/dl (3.4-5.0); ALK PHOS 80 U/L (45-117); ANION GAP 8 (8-16); BILIRUBIN,TOTAL 0.3 mg/dL (0.2-1.0); BLOOD UREA NITROGEN 13 mg/dL (7-18); CALCIUM 9.4 mg/dL (8.5-10.1); CO2 29 mmol/L (21-32); CREATININE 0.8 mg/dL (0.7-1.3); GLUCOSE,RANDOM 203 mg/dL (74-106); SGOT/AST 19 U/L (15-37); SGPT/ALT 28 U/L (12-78); TOT PROT 7.7 g/dl (6.4-8.2)
[2017-08-13] MEDS: PRENATAL VITAMINS W/ FOLIC ACID TABLET (FP) PO SCH (10:31)
--- NOTE | 2017-08-13 13:34 | HP ---
Psychiatrist Admission - Data Date of interview: 08/13/17 Admission source: [facility] Identifying data: This is the third [facility] inpatient rehabilitation admission for thsi 56 year old AA male, without children, unemployed and on SSI, residing with his mother in [place]. Medical History: HTN, Hypercholesterolemia, Gout, DM, bilateral hips replacement. Psychiatric History: Patient reports was diagnosed with MDD, first psychiatric contact in 2002 following the of his from complications of diabetes, reports he tried to commit a suicide by overdose with drugs and alcohol, states family called 911 and he was brought to [facility], states was overnight there and sent to I detox. second hospitalization at [facility] in 2010 for 2 days(was intoxicated), [facility] Reports he obtains his medications visiting ERs at [facility]. He currently on Wellbutrin 100 mg po daily and Seroquel 50 mg po hs. Physical/Sexual Abuse/Trauma History: denies Vital Signs: Vital Signs - 24 hr 08/12/17 08/12/17 08/13/17 15:55 19:26 00:30 Temperature 97.6 F 98.8 F Pulse Rate 100 H 104 H Respiratory 20 16 18 Rate Blood Pressure 128/76 113/64 08/13/17 08/13/17 03:30 07:21 Temperature 98.7 F Pulse Rate 86 Respiratory 18 18 Rate Blood Pressure 125/80 Allergies/Adverse Reactions: Allergies Allergy/AdvReac Type Severity Reaction Status Date / Time metoprolol Allergy Severe Swelling Verified 08/12/17 17:43 Beef Containing Products Allergy Verified 08/12/17 17:43 Date of last physical exam: 08/12/17 Concur with the findings of this exam: Yes - Substance Abuse/Tx History Hx Alcohol Use: Yes (beer daily 24 oz 10 cans) Hx Substance Use: No Substance Use Type: Alcohol Hx Substance Use Treatment: Yes Mental Status Exam - Mental Status Exam Alert and Oriented to: Time, Place, Person Cognitive Function: Good Patient Appearance: Well Groomed Mood: Sad Affect: Appropriate, Mood Congruent Patient Behavior: Appropriate, Cooperative Speech Pattern: Clear, Appropriate Voice Loudness: Normal Thought Process: Intact, Goal Oriented Thought Disorder: Not Present Hallucinations: Denies Suicidal Ideation: Denies Homicidal Ideation: Denies Insight/Judgement: Fair Sleep: Well Appetite: Good Muscle strength/Tone: Normal Gait/Station: Other (using walker) Psychiatric Findings - Problem List ([place] 1, 2,3) (1) Alcohol dependence Current Visit: Yes Status: Active (2) MDD (major depressive disorder) Current Visit: No Status: Chronic Qualifiers: Major depression recurrence: recurrent Active/Remission status: remission status unspecified Qualified Code(s): F33.9 - Major depressive disorder, recurrent, unspecified - Initial Treatment Plan Initial Treatment Plan: will continue medications, monitor progress as needed.
--- NOTE | 2017-08-13 14:33 | PN ---
[facility] Progress Note Note: abnormal ekg. Repeat EKG in AM Continue to monitor
[2017-08-13] MEDS: QUEtiapine FUMARATE 50 MG TABLET PO SCH (21:39)
[2017-08-13] MEDS: THIAMINE HCL 100 MG TABLET (FP) PO SCH (21:39)
[2017-08-14] MEDS: metFORMIN HCL 500 MG TABLET (FP) PO SCH ×2 (07:27→16:47)
[2017-08-14] MEDS: INSULIN SLIDING SCALE (NOVOLOG) 1 VIAL SQ SCH ×2 (07:29→16:46)
[2017-08-14] MEDS ORDERED: INSULIN (NOVOLOG) ASPART 100 UNITS/ML 10ML VIAL ONE ×2 (07:29→16:46)
--- NOTE | 2017-08-14 08:10 | EKG ---
Test Reason : Blood Pressure : / mmHG Vent. Rate : 084 BPM Atrial Rate : 084 BPM P-R Int : 166 ms QRS Dur : 074 ms QT Int : 352 ms P-R-T Axes : 062 010 -13 degrees QTc Int : 415 ms NORMAL SINUS RHYTHM POSSIBLE INFERIOR INFARCT , AGE UNDETERMINED ABNORMAL ECG WHEN COMPARED WITH ECG OF 09-JAN-2017 20:34, INVERTED T WAVES HAVE REPLACED NONSPECIFIC T WAVE ABNORMALITY IN INFERIOR LEADS Confirmed by CELSO WHATLEY, REE ([id number]) on 08/13/2017 4:12:09 PM Referred By: Jerome CRONIN Confirmed By:REE HOUSTON MD
[2017-08-14] MEDS: buPROPion HCL 100 MG TABLET PO SCH (10:21)
[2017-08-14] MEDS: PRENATAL VITAMINS W/ FOLIC ACID TABLET (FP) PO SCH (10:21)
[2017-08-14] MEDS: IBUPROFEN 400 MG TABLET (FP) PO PRN (10:22)
[2017-08-14] MEDS: THIAMINE HCL 100 MG TABLET (FP) PO SCH (21:43)
[2017-08-14] MEDS: QUEtiapine FUMARATE 50 MG TABLET PO SCH (21:44)
[2017-08-14] MEDS: INDOMETHACIN 25 MG CAPSULE PO SCH (23:39)
[2017-08-15] MEDS: metFORMIN HCL 500 MG TABLET (FP) PO SCH ×2 (06:32→16:36)
[2017-08-15] MEDS ORDERED: INSULIN (NOVOLOG) ASPART 100 UNITS/ML 10ML VIAL ONE ×2 (07:43→16:51)
[2017-08-15] MEDS: INSULIN SLIDING SCALE (NOVOLOG) 1 VIAL SQ SCH ×2 (07:45→16:36)
[2017-08-15] MEDS: PRENATAL VITAMINS W/ FOLIC ACID TABLET (FP) PO SCH (10:17)
[2017-08-15] MEDS: buPROPion HCL 100 MG TABLET PO SCH (10:17)
[2017-08-15] MEDS: INDOMETHACIN 25 MG CAPSULE PO SCH ×2 (10:19→21:33)
[2017-08-15] MEDS: THIAMINE HCL 100 MG TABLET (FP) PO SCH (21:33)
[2017-08-15] MEDS: QUEtiapine FUMARATE 50 MG TABLET PO SCH (21:33)
[2017-08-16] MEDS: metFORMIN HCL 500 MG TABLET (FP) PO SCH ×2 (06:54→16:41)
[2017-08-16] MEDS: INSULIN SLIDING SCALE (NOVOLOG) 1 VIAL SQ SCH ×2 (06:55→16:41)
[2017-08-16] MEDS: buPROPion HCL 100 MG TABLET PO SCH (10:10)
[2017-08-16] MEDS: PRENATAL VITAMINS W/ FOLIC ACID TABLET (FP) PO SCH (10:10)
[2017-08-16] MEDS: INDOMETHACIN 25 MG CAPSULE PO SCH ×2 (10:10→21:42)
[2017-08-16] MEDS ORDERED: INSULIN (NOVOLOG) ASPART 100 UNITS/ML 10ML VIAL ONE (16:46)
[2017-08-16] MEDS: THIAMINE HCL 100 MG TABLET (FP) PO SCH (21:42)
[2017-08-16] MEDS: QUEtiapine FUMARATE 50 MG TABLET PO SCH (21:42)
[2017-08-17] MEDS: metFORMIN HCL 500 MG TABLET (FP) PO SCH ×2 (06:42→16:44)
[2017-08-17] MEDS: INSULIN SLIDING SCALE (NOVOLOG) 1 VIAL SQ SCH ×2 (07:00→16:46)
[2017-08-17] MEDS ORDERED: INSULIN (NOVOLOG) ASPART 100 UNITS/ML 10ML VIAL ONE ×2 (07:41→16:52)
[2017-08-17] MEDS: buPROPion HCL 100 MG TABLET PO SCH (10:37)
[2017-08-17] MEDS: PRENATAL VITAMINS W/ FOLIC ACID TABLET (FP) PO SCH (10:37)
[2017-08-17] MEDS: INDOMETHACIN 25 MG CAPSULE PO SCH (10:37)
[2017-08-17] MEDS: QUEtiapine FUMARATE 50 MG TABLET PO SCH (21:31)
[2017-08-17] MEDS: THIAMINE HCL 100 MG TABLET (FP) PO SCH (21:31)
[2017-08-18] MEDS ORDERED: INSULIN (NOVOLOG) ASPART 100 UNITS/ML 10ML VIAL ONE ×2 (06:37→17:18)
[2017-08-18] MEDS: metFORMIN HCL 500 MG TABLET (FP) PO SCH ×2 (07:20→16:51)
[2017-08-18] MEDS: INSULIN SLIDING SCALE (NOVOLOG) 1 VIAL SQ SCH ×2 (07:22→16:51)
[2017-08-18] MEDS: buPROPion HCL 100 MG TABLET PO SCH (09:35)
[2017-08-18] MEDS: PRENATAL VITAMINS W/ FOLIC ACID TABLET (FP) PO SCH (09:35)
[2017-08-18] MEDS: INDOMETHACIN 25 MG CAPSULE PO SCH ×3 (09:36→21:35)
[2017-08-18] MEDS: THIAMINE HCL 100 MG TABLET (FP) PO SCH (21:35)
[2017-08-18] MEDS: QUEtiapine FUMARATE 50 MG TABLET PO SCH (21:35)
[2017-08-19] MEDS: metFORMIN HCL 500 MG TABLET (FP) PO SCH ×2 (06:21→16:46)
[2017-08-19] MEDS: INSULIN SLIDING SCALE (NOVOLOG) 1 VIAL SQ SCH ×2 (07:00→16:48)
[2017-08-19] MEDS: buPROPion HCL 100 MG TABLET PO SCH (10:20)
[2017-08-19] MEDS: PRENATAL VITAMINS W/ FOLIC ACID TABLET (FP) PO SCH (10:20)
[2017-08-19] MEDS: INDOMETHACIN 25 MG CAPSULE PO SCH ×2 (10:20→21:36)
[2017-08-19] MEDS ORDERED: INSULIN (NOVOLOG) ASPART 100 UNITS/ML 10ML VIAL ONE (16:50)
[2017-08-19] MEDS: QUEtiapine FUMARATE 50 MG TABLET PO SCH (21:36)
[2017-08-19] MEDS: THIAMINE HCL 100 MG TABLET (FP) PO SCH (21:36)
[2017-08-20] MEDS: metFORMIN HCL 500 MG TABLET (FP) PO SCH ×2 (06:17→16:43)
[2017-08-20] MEDS ORDERED: INSULIN (NOVOLOG) ASPART 100 UNITS/ML 10ML VIAL ONE ×2 (07:35→16:45)
[2017-08-20] MEDS: INSULIN SLIDING SCALE (NOVOLOG) 1 VIAL SQ SCH ×2 (07:39→16:45)
[2017-08-20] MEDS: INDOMETHACIN 25 MG CAPSULE PO SCH ×2 (10:32→21:38)
[2017-08-20] MEDS: buPROPion HCL 100 MG TABLET PO SCH (10:32)
[2017-08-20] MEDS: PRENATAL VITAMINS W/ FOLIC ACID TABLET (FP) PO SCH (10:32)
[2017-08-20] MEDS: QUEtiapine FUMARATE 50 MG TABLET PO SCH (21:38)
[2017-08-20] MEDS: THIAMINE HCL 100 MG TABLET (FP) PO SCH (21:38)
[2017-08-21] MEDS: metFORMIN HCL 500 MG TABLET (FP) PO SCH ×2 (06:16→16:44)
[2017-08-21] MEDS ORDERED: INSULIN (NOVOLOG) ASPART 100 UNITS/ML 10ML VIAL ONE ×2 (06:52→16:45)
[2017-08-21] MEDS: INSULIN SLIDING SCALE (NOVOLOG) 1 VIAL SQ SCH ×2 (07:00→16:44)
[2017-08-21] MEDS: PRENATAL VITAMINS W/ FOLIC ACID TABLET (FP) PO SCH (10:01)
[2017-08-21] MEDS: buPROPion HCL 100 MG TABLET PO SCH (10:01)
[2017-08-21] MEDS: INDOMETHACIN 25 MG CAPSULE PO SCH ×2 (10:01→21:29)
--- NOTE | 2017-08-21 10:01 | PN ---
[facility] Progress Note Note: Patient c/o straining upon defecation and hard stools. Last BM yesterday. Denies N/V/D. Laboratory Tests 08/12/17 08/13/17 08/13/17 Unknown 06:42 07:00 WBC 8.4 RBC 4.49 Hgb 13.1 Hct 39.9 MCV 88.9 MCH 29.1 MCHC 32.8 RDW 14.0 Plt Count 367 MPV 8.0 Sodium Potassium Chloride Carbon Dioxide Anion Gap BUN Creatinine Creat Clearance w eGFR POC Glucometer 244 Random Glucose Uric Acid Calcium Total Bilirubin AST ALT Alkaline Phosphatase Total Protein Albumin Urine Color Ltyellow Urine Appearance Clear Urine pH 6.0 Ur Specific [place] 1.009 Urine Protein Negative Urine Glucose (UA) Negative Urine Ketones Negative Urine Blood Negative Urine Nitrite Negative Urine Bilirubin Negative Urine Urobilinogen Negative Ur Leukocyte Esterase Negative RPR Titer 08/13/17 08/13/17 08/13/17 07:00 07:00 16:44 WBC RBC Hgb Hct MCV MCH MCHC RDW Plt Count MPV Sodium 137 Potassium 4.7 D Chloride 100 Carbon Dioxide 29 Anion Gap 8 BUN 13 D Creatinine 0.8 Creat Clearance w eGFR > 60 POC Glucometer 235 Random Glucose 203 H D Uric Acid 7.0 Calcium 9.4 Total Bilirubin 0.3 D AST 19 D ALT 28 Alkaline Phosphatase 80 Total Protein 7.7 Albumin 3.5 Urine Color Urine Appearance Urine pH Ur Specific [place] Urine Protein Urine Glucose (UA) Urine Ketones Urine Blood Urine Nitrite Urine Bilirubin Urine Urobilinogen Ur Leukocyte Esterase RPR Titer Nonreactive 08/14/17 08/14/17 08/15/17 06:32 16:44 06:31 WBC RBC Hgb Hct MCV MCH MCHC RDW Plt Count MPV Sodium Potassium Chloride Carbon Dioxide Anion Gap BUN Creatinine Creat Clearance w eGFR POC Glucometer 241 320 244 Random Glucose Uric Acid Calcium Total Bilirubin AST ALT Alkaline Phosphatase Total Protein Albumin Urine Color Urine Appearance Urine pH Ur Specific [place] Urine Protein Urine Glucose (UA) Urine Ketones Urine Blood Urine Nitrite Urine Bilirubin Urine Urobilinogen Ur Leukocyte Esterase RPR Titer 08/15/17 08/16/17 08/16/17 16:34 06:54 16:40 WBC RBC Hgb Hct MCV MCH MCHC RDW Plt Count MPV Sodium Potassium Chloride Carbon Dioxide Anion Gap BUN Creatinine Creat Clearance w eGFR POC Glucometer 319 250 301 Random Glucose Uric Acid Calcium Total Bilirubin AST ALT Alkaline Phosphatase Total Protein Albumin Urine Color Urine Appearance Urine pH Ur Specific [place] Urine Protein Urine Glucose (UA) Urine Ketones Urine Blood Urine Nitrite Urine Bilirubin Urine Urobilinogen Ur Leukocyte Esterase RPR Titer 08/17/17 08/17/17 08/18/17 06:40 16:44 06:03 WBC RBC Hgb Hct MCV MCH MCHC RDW Plt Count MPV Sodium Potassium Chloride Carbon Dioxide Anion Gap BUN Creatinine Creat Clearance w eGFR POC Glucometer 303 308 243 Random Glucose Uric Acid Calcium Total Bilirubin AST ALT Alkaline Phosphatase Total Protein Albumin Urine Color Urine Appearance Urine pH Ur Specific [place] Urine Protein Urine Glucose (UA) Urine Ketones Urine Blood Urine Nitrite Urine Bilirubin Urine Urobilinogen Ur Leukocyte Esterase RPR Titer 08/18/17 08/19/17 08/19/17 16:49 06:21 16:45 WBC RBC Hgb Hct MCV MCH MCHC RDW Plt Count MPV Sodium Potassium Chloride Carbon Dioxide Anion Gap BUN Creatinine Creat Clearance w eGFR POC Glucometer 335 194 251 Random Glucose Uric Acid Calcium Total Bilirubin AST ALT Alkaline Phosphatase Total Protein Albumin Urine Color Urine Appearance Urine pH Ur Specific [place] Urine Protein Urine Glucose (UA) Urine Ketones Urine Blood Urine Nitrite Urine Bilirubin Urine Urobilinogen Ur Leukocyte Esterase RPR Titer 08/20/17 08/20/17 08/21/17 06:16 16:42 06:15 WBC RBC Hgb Hct MCV MCH MCHC RDW Plt Count MPV Sodium Potassium Chloride Carbon Dioxide Anion Gap BUN Creatinine Creat Clearance w eGFR POC Glucometer 241 305 207 Random Glucose Uric Acid Calcium Total Bilirubin AST ALT Alkaline Phosphatase Total Protein Albumin Urine Color Urine Appearance Urine pH Ur Specific [place] Urine Protein Urine Glucose (UA) Urine Ketones Urine Blood Urine Nitrite Urine Bilirubin Urine Urobilinogen Ur Leukocyte Esterase RPR Titer Vital Signs Temperature 98.0 F 08/21/17 07:20 Pulse Rate 94 H 08/21/17 07:20 Respiratory Rate 18 08/21/17 07:20 Blood Pressure 137/87 08/21/17 07:20 O2 Sat by Pulse Oximetry (%) Obj: Skin: warm and dry and intact Car: S1S2 Resp: CTA BL GI: soft, BS+, NT A/P: Constipation increase oral fluids add colace 100mg BID continue to monitor clinically
[2017-08-21] MEDS: DOCUSATE SODIUM 100 MG CAPSULE (FP) PO SCH ×2 (11:00→21:29)
[2017-08-21] MEDS: QUEtiapine FUMARATE 50 MG TABLET PO SCH (21:29)
[2017-08-21] MEDS: THIAMINE HCL 100 MG TABLET (FP) PO SCH (21:29)
[2017-08-22] MEDS: INSULIN SLIDING SCALE (NOVOLOG) 1 VIAL SQ SCH ×2 (06:24→16:42)
[2017-08-22] MEDS: metFORMIN HCL 500 MG TABLET (FP) PO SCH ×2 (06:24→16:39)
[2017-08-22] MEDS ORDERED: INSULIN (NOVOLOG) ASPART 100 UNITS/ML 10ML VIAL ONE (06:31)
[2017-08-22] MEDS: PRENATAL VITAMINS W/ FOLIC ACID TABLET (FP) PO SCH (10:04)
[2017-08-22] MEDS: buPROPion HCL 100 MG TABLET PO SCH (10:04)
[2017-08-22] MEDS: INDOMETHACIN 25 MG CAPSULE PO SCH ×2 (10:05→21:53)
[2017-08-22] MEDS: DOCUSATE SODIUM 100 MG CAPSULE (FP) PO SCH ×2 (10:05→21:53)
[2017-08-22] MEDS: THIAMINE HCL 100 MG TABLET (FP) PO SCH (21:53)
[2017-08-22] MEDS: QUEtiapine FUMARATE 50 MG TABLET PO SCH (21:53)
[2017-08-23] MEDS: metFORMIN HCL 500 MG TABLET (FP) PO SCH ×2 (06:15→16:33)
[2017-08-23] MEDS: INSULIN SLIDING SCALE (NOVOLOG) 1 VIAL SQ SCH ×2 (06:59→16:37)
[2017-08-23] MEDS: buPROPion HCL 100 MG TABLET PO SCH (10:08)
[2017-08-23] MEDS: PRENATAL VITAMINS W/ FOLIC ACID TABLET (FP) PO SCH (10:08)
[2017-08-23] MEDS: DOCUSATE SODIUM 100 MG CAPSULE (FP) PO SCH ×2 (10:08→21:38)
[2017-08-23] MEDS: INDOMETHACIN 25 MG CAPSULE PO SCH ×2 (10:09→21:39)
[2017-08-23] MEDS ORDERED: INSULIN (NOVOLOG) ASPART 100 UNITS/ML 10ML VIAL ONE (16:35)
[2017-08-23] MEDS: THIAMINE HCL 100 MG TABLET (FP) PO SCH (21:38)
[2017-08-23] MEDS: QUEtiapine FUMARATE 50 MG TABLET PO SCH (21:38)
[2017-08-24] MEDS: metFORMIN HCL 500 MG TABLET (FP) PO SCH ×2 (06:00→16:45)
[2017-08-24] MEDS ORDERED: INSULIN (NOVOLOG) ASPART 100 UNITS/ML 10ML VIAL ONE ×2 (06:46→16:45)
[2017-08-24] MEDS: INSULIN SLIDING SCALE (NOVOLOG) 1 VIAL SQ SCH ×2 (07:31→16:44)
[2017-08-24] MEDS: PRENATAL VITAMINS W/ FOLIC ACID TABLET (FP) PO SCH (10:25)
[2017-08-24] MEDS: buPROPion HCL 100 MG TABLET PO SCH (10:25)
[2017-08-24] MEDS: DOCUSATE SODIUM 100 MG CAPSULE (FP) PO SCH ×2 (10:25→21:34)
[2017-08-24] MEDS: INDOMETHACIN 25 MG CAPSULE PO SCH ×2 (10:26→21:35)
[2017-08-24] MEDS: THIAMINE HCL 100 MG TABLET (FP) PO SCH (21:34)
[2017-08-24] MEDS: QUEtiapine FUMARATE 50 MG TABLET PO SCH (21:34)
[2017-08-25] MEDS: metFORMIN HCL 500 MG TABLET (FP) PO SCH ×2 (06:10→16:45)
[2017-08-25] MEDS ORDERED: INSULIN (NOVOLOG) ASPART 100 UNITS/ML 10ML VIAL ONE ×2 (07:25→16:45)
[2017-08-25] MEDS: INSULIN SLIDING SCALE (NOVOLOG) 1 VIAL SQ SCH ×2 (07:27→16:46)
[2017-08-25] MEDS: PRENATAL VITAMINS W/ FOLIC ACID TABLET (FP) PO SCH (10:23)
[2017-08-25] MEDS: buPROPion HCL 100 MG TABLET PO SCH (10:23)
[2017-08-25] MEDS: DOCUSATE SODIUM 100 MG CAPSULE (FP) PO SCH ×2 (10:23→21:38)
[2017-08-25] MEDS: INDOMETHACIN 25 MG CAPSULE PO SCH ×2 (10:24→21:39)
[2017-08-25] MEDS: THIAMINE HCL 100 MG TABLET (FP) PO SCH (21:38)
[2017-08-25] MEDS: QUEtiapine FUMARATE 50 MG TABLET PO SCH (21:38)
[2017-08-26] MEDS: metFORMIN HCL 500 MG TABLET (FP) PO SCH ×2 (07:35→16:45)
[2017-08-26] MEDS: INSULIN SLIDING SCALE (NOVOLOG) 1 VIAL SQ SCH ×2 (07:42→17:17)
[2017-08-26] MEDS: PRENATAL VITAMINS W/ FOLIC ACID TABLET (FP) PO SCH (10:29)
[2017-08-26] MEDS: DOCUSATE SODIUM 100 MG CAPSULE (FP) PO SCH ×2 (10:29→21:33)
[2017-08-26] MEDS: buPROPion HCL 100 MG TABLET PO SCH (10:29)
[2017-08-26] MEDS: INDOMETHACIN 25 MG CAPSULE PO SCH ×2 (10:29→21:33)
[2017-08-26] MEDS ORDERED: INSULIN (NOVOLOG) ASPART 100 UNITS/ML 10ML VIAL ONE (17:14)
[2017-08-26] MEDS: THIAMINE HCL 100 MG TABLET (FP) PO SCH (21:33)
[2017-08-26] MEDS: QUEtiapine FUMARATE 50 MG TABLET PO SCH (21:33)
[2017-08-27] MEDS: metFORMIN HCL 500 MG TABLET (FP) PO SCH (06:41)
[2017-08-27 07:18] VITALS: BP 141/98; PULSE 90; TEMP 98.3
[2017-08-27] MEDS ORDERED: INSULIN (NOVOLOG) ASPART 100 UNITS/ML 10ML VIAL ONE (07:44)
[2017-08-27] MEDS: INSULIN SLIDING SCALE (NOVOLOG) 1 VIAL SQ SCH (08:00)
[2017-08-27] MEDS: INDOMETHACIN 25 MG CAPSULE PO SCH (10:32)
[2017-08-27] MEDS: PRENATAL VITAMINS W/ FOLIC ACID TABLET (FP) PO SCH (10:32)
[2017-08-27] MEDS: buPROPion HCL 100 MG TABLET PO SCH (10:32)
[2017-08-27] MEDS: DOCUSATE SODIUM 100 MG CAPSULE (FP) PO SCH (10:32)
--- NOTE | 2017-08-27 10:44 | PN ---
Psychiatric Progress Note Vital Signs: Vital Signs Period Temp Pulse Resp BP Sys/Edwards Pulse Ox Last 24 Hr 98.3 F 90 18-18 141/98 Date of Session: 08/27/17 Chief Complaint:: discharge visit HPI: Patient has addressed alcohol dependence comrobid MDD. ROS: WNL Current Medications: Active Medications Generic Name Dose Route Start Last Admin Trade Name Freq PRN Reason Stop Dose Admin Acetaminophen 650 mg 08/12/17 18:20 Tylenol - PO Q4H PRN FEVER Al Hydroxide/Mg Hydroxide 30 ml 08/12/17 18:20 Mylanta Oral Suspension - PO Q6H PRN DYSPEPSIA Bupropion HCl 100 mg 08/14/17 10:00 08/27/17 10:32 Wellbutrin - PO 100 mg DAILY ANA Administration Docusate Sodium 100 mg 08/21/17 10:00 08/27/17 10:32 Colace - PO 100 mg BID ANA Administration Eucalyptus/Menthol/Phenol/Sorbitol 1 each 08/12/17 18:20 Cepastat Lozenge - MM Q4H PRN SORE THROAT Guaifenesin 10 ml 08/12/17 18:20 Robitussin Dm - PO Q6H PRN COUGH Hydroxyzine Pamoate 50 mg 08/12/17 18:20 Vistaril - PO Q4H PRN AGITATION Indomethacin 25 mg 08/14/17 22:00 08/27/17 10:32 Indocin - PO 25 mg BID ANA Administration Insulin Aspart 1 vial 08/14/17 07:00 08/27/17 08:00 Novolog Vial Sliding Scale - SQ 4 units BIDAC ANA Administration Protocol Loperamide HCl 4 mg 08/12/17 18:20 Imodium - PO Q6H PRN DIARRHEA Magnesium Citrate 300 ml 08/12/17 18:20 Citroma - PO Q48H PRN CONSTIPATION Magnesium Hydroxide 30 ml 08/12/17 18:20 Milk Of Magnesia - PO DAILY PRN CONSTIPATION Melatonin 5 mg 08/12/17 22:00 08/12/17 21:39 Melatonin PO 5 mg HS PRN Administration INSOMNIA Metformin HCl 500 mg 08/13/17 07:00 08/27/17 06:41 Glucophage - PO 500 mg BIDAC ANA Administration Multivit/Folic Acid/Iron 1 tab 08/13/17 10:00 08/27/17 10:32 Vitamins (Sjr) - PO 1 tab DAILY ANA Administration Pseudoephedrine/Triprolidine 1 combo 08/12/17 18:20 Actifed - PO TID PRN NASAL CONGESTION Quetiapine Fumarate 50 mg 08/13/17 22:00 08/26/17 21:33 Seroquel - PO 50 mg HS ANA Administration Thiamine HCl 100 mg 08/12/17 22:00 08/26/17 21:33 Vitamin B1 - PO 100 mg HS ANA Administration Current Side Effect: No Lab tests ordered: No Lab tests reviewed: Yes Provider note:: Patient has completed today his treatment and met his goals, will continue to address his issues at [facility] outpatient treatment program. Patient gained insights into importance of changing attitudes and utilization of supports available to prevent relapses. Medications Seroquel and Wellbutrin well tolerated, patient reports feels energetic and hopefull, scripts for 30 days provided. Patient is stable for discharge today. Total face to face time:: 15 Mental Status Exam - Mental Status Exam Alert and Oriented to: Time, Place, Person Cognitive Function: Good Patient Appearance: Well Groomed Mood: Hopeful Affect: Appropriate, Mood Congruent Patient Behavior: Appropriate, Cooperative Speech Pattern: Clear, Appropriate Voice Loudness: Normal Thought Process: Intact, Goal Oriented Thought Disorder: Not Present Hallucinations: Denies Suicidal Ideation: Denies Homicidal Ideation: Denies Insight/Judgement: Fair Sleep: Fair Appetite: Fair Gait/Station: Other Psychiatric Treatment Plan - Problem List (1) Alcohol dependence Current Visit: Yes (2) MDD (major depressive disorder) Current Visit: No Qualifiers: Major depression recurrence: recurrent Active/Remission status: remission status unspecified Qualified Code(s): F33.9 - Major depressive disorder, recurrent, unspecified
== END 2017-08-27 11:25 | disposition home or self-care (01) | DRG 772 ==
LOC: YASAS 14:28 → Y5N 19:01
PROVIDERS: ADMIT Psychiatry & Neurology Psychiatry; ATTEND Psychiatry & Neurology Psychiatry
PROC: HZ42ZZZ Group Counseling for Substance Abuse Treatment, Cognitive-Behavioral (ICD-10-PCS; principal; 2017-08-12)
DX: F10.20 Alcohol dependence, uncomplicated (principal); F33.9 Major depressive disorder, recurrent, unspecified; E11.9 Type 2 diabetes mellitus without complications; Z79.84 Long term (current) use of oral hypoglycemic drugs; K59.01 Slow transit constipation; I10 Essential (primary) hypertension; E78.00 Pure hypercholesterolemia, unspecified; Z91.14 Patient's other noncompliance with medication regimen
CPT/HCPCS: 36415; 80053; 81003; 82962; 84550; 85027; 86593; 93005; 93010